=== PATIENT | male | born 1950 | race Caucasian/White ===

== ENCOUNTER 2021-07-14 14:44 | Emergency (ER) | payer MEDICARE, SELFPAY ==
--- NOTE | ~2021-07-14 | US_ITS ---
EXAMINATION: US SCROTUM CLINICAL INFORMATION: Left testicular swelling, pain. COMPARISON: None TECHNIQUE: A sonogram of the scrotum was performed assessing singh-scale appearance and color Doppler flow. Spectral Doppler analysis of the arterial and venous flow were performed in the testes bilaterally. FINDINGS: RIGHT: Right testicle measures 3.8 x 2.9 x 4.0 cm, volume 23.0 mL. No focal testicular parenchymal lesions are visualized. Spectral Doppler analysis of the arterial and venous flow is normal in the right testis. Right epididymal head is not well visualized. No right varicocele is seen. Large right-sided hydrocele. LEFT: Left testicle measures 5 x 2.8 x 3.0 cm, volume 16.6 mL. No focal testicular parenchymal lesions are visualized. Spectral Doppler analysis of the arterial and venous flow is decreased in the left testis. Left epididymal head is now well visualized. No left hydrocele or varicocele is seen. Large left complex hydrocele visualized. US/US scrotum doppler IMPRESSION: 1. Bilateral testicular vascular flow identified. 2. Mildly decreased flow the left testicle nonspecific. Correlation with physical exam and possibility of subacute torsion. 3. Large left-sided complex hydrocele. 4. Large right-sided hydrocele, smaller than the left. This critical result was discussed with COLBY DIETRICH by telephone on 07/14/2021 5:31 PM and it was ascertained that the content and urgency of the report was understood at the time of direct communication.
[2021-07-14 14:45] VITALS: BP 149/87; PULSE 90; RESP 16; TEMP 36.2; O2SAT 94; BMI 30.7
--- NOTE | 2021-07-14 15:33 | ED.MALEGU ---
HPI - Male Genitourinary General Chief complaint: Urogenital-Male <KARLO Barrientos - Last Filed: 07/14/21 18:11> Stated complaint: swollen testicle <KARLO Barrientos Last Filed: 07/14/21 18:11> Time Seen by Provider: 07/14/21 15:21 <KARLO Barrientos Last Filed: 07/14/21 18:11> Source: patient <KARLO Barrientos Last Filed: 07/14/21 18:11> Mode of arrival: ambulatory <KARLO Barrientos Last Filed: 07/14/21 18:11> Limitations: no limitations <KARLO Barrientos Last Filed: 07/14/21 18:11> History of Present Illness HPI Narrative: This is a 71-year-old male that presents to the emergency department with 2 days of left-sided scrotal swelling. He states that his left testicle has been progressively becoming more swollen since yesterday. He denies any pain to the area. He also notes that his testicle a is red, and warm, when compared to usual. He states he tried going to his urologist which he sees for BPH, however they told him to present to the emergency department. He has a past medical history of renal, and colon cancer. He denies any history of STIs. He denies fevers, chills, shortness of breath, chest pain, nausea, vomiting, diarrhea, pain at the testicles, discharge from the penis, changes in bowel habits and painful urination. He is not currently sexually active. <KARLO Barrientos - Last Filed: 07/14/21 18:11> MD Complaint: testicle swelling <KARLO Barrientos Last Filed: 07/14/21 18:11> Onset (ago): day(s) (2) <KARLO Barrientos Last Filed: 07/14/21 18:11> Location: left testicle <KARLO Barrientos Last Filed: 07/14/21 18:11> Severity: moderate <KARLO Barrientos Last Filed: 07/14/21 18:11> Relieving factors: none <KARLO Barrientos Last Filed: 07/14/21 18:11> Exacerbating factors: none <KARLO Barrientos Last Filed: 07/14/21 18:11> Associated symptoms: Reports denies other symptoms <KARLO Barrientos Last Filed: 07/14/21 18:11> Related Data Sexually active: No <KARLO Barrientos Last Filed: 07/14/21 18:11> Allergies/Adverse reactions: Allergies Allergy/AdvReac Type Severity Reaction Status Date / Time Qowbhgz-Fqg-Woz Reductase Allergy Unknown UNKNOWN Unverified 07/14/20 19:03 Inhibitor [VMHDZBD-NIT-ANL REDUCTASE INHIBITOR] <KARLO Barrientos Last Filed: 07/14/21 18:11> Review of Systems Review of Systems: Constitutional : No Weight loss, No Fever, No Chills, No Night Sweats, No Fatigue, No Malaise ENT/Mouth : No Hearing loss, No Ear Pain, No Nasal Congestion, No Sinus Pain Eyes: No Eye Pain, No Swelling, No Redness, No Foreign Body, No Discharge, No Vision Changes Cardiovascular : No Chest Pain, No SOB, No Dyspnea on Exertion, No Orthopnea, No Edema, No Palpitations Respiratory : No Cough, No Sputum, No Wheezing, No Smoke Exposure, No Dyspnea Gastrointestinal : No Nausea, No Vomiting, No Diarrhea, No Constipation, No abdominal Pain, No Hematochezia, No Melena Genitourinary : no irregular bleeding, No Dysuria, No Urinary Frequency, No Hematuria, No Urinary Incontinence, No Urgency, No Flank Pain, No Urinary Flow Changes, No Hesitancy, + erythema, and swelling of the left testicle. Musculoskeletal : No joint pain, No Myalgias, No Joint Swelling Skin : No Skin Lesions, No rash Neuro : No Weakness, No Numbness, No Paresthesias, No Loss of Consciousness, No Dizziness, No Headache Psych : No Anxiety/Panic, No Depression, No SI/HI/AH/VH, No Social Issues, Heme/Lymph: No Bruising, No Bleeding,No Lymphadenopathy Endocrine : No Polyuria, No Polydipsia, No Temperature Intolerance <KARLO Barrientos Last Filed: 07/14/21 18:11> Yes all other systems are reviewed and are negative <KARLO Barrientos Last Filed: 07/14/21 18:11> [facility] Past Medical History Attestation statement: The following information was validated with the patient. <KARLO Barrientos - Last Filed: 07/14/21 18:11> Source: old records reviewed <KARLO Barrientos - Last Filed: 07/14/21 18:11> Medical History: Medical History No known health problems <KARLO Barrientos - Last Filed: 07/14/21 18:11> Social History Social History: Social History Advance Directives: No Advance Directives Information Provided: No <KARLO Barrientos - Last Filed: 07/14/21 18:11> Physical Exam Vital Signs: Vital Signs: Last Vital Signs Temp 97.1 F 07/14/21 14:45 Pulse 90 07/14/21 14:45 Resp 16 07/14/21 14:45 BP 149/87 H 07/14/21 14:45 Pulse Ox 94 07/14/21 14:45 Body Mass Index 30.7 vital signs have been reviewed as normal and appeared to be correct. Blood pressure hypertensive at 149/87 Heart rate normal. Respiration rate normal. Temperature normal. Oxygen saturation normal. <KARLO Barrientos - Last Filed: 07/14/21 18:11> Vital Signs: Last Vital Signs Temp 97.1 F 07/14/21 14:45 Pulse 90 07/14/21 14:45 Resp 16 07/14/21 14:45 BP 149/87 H 07/14/21 14:45 Pulse Ox 94 07/14/21 14:45 Body Mass Index 30.7 <Tawanna Gómez PA-C - Last Filed: 07/14/21 17:32> Appearance: Alert. Oriented X3. No acute distress. Head: Normal external exam. Normocephalic. Atraumatic. Eyes: PERRLA. EOMI. Conjunctiva and sclera normal. Eyelids normal. ENT: Pharynx normal. Uvula midline. Moist mucous membranes. Neck: Normal inspection. Neck supple. FROM. No adenopathy. No meningeal signs. CVS: Normal heart rate and rhythm. Heart sound normal. No murmurs noted. Pulses normal throughout. Respiratory: No respiratory distress. Painless inspiration. Breath sounds normal. No wheezes/rales/rhonchi noted. Chest nontender. No accessory muscle usage noted or decreased air movement noted. Abdomen: Soft and nontender. Bowel sounds normal in all 4 quadrants. No distention noted. No organomegaly noted. No visible injury noted. : + swelling, erythema, and calor noted to the left testicle. , + inguinal lymphadenopathy noted. No lacerations/lesions. No tenderness noted. Normal penis. No Condyloma noted. Not edematous/mass/nodule/papules/pustules/vesicles. Not consistent with paraphimosis or phimosis. No ulcerations or lesions noted. The meatus is normal. No meatal discharge noted. No blood at the meatus. T. Cremasteric reflex absent. Testicles are both descended bilaterally. + bilateral hydrocele noted with positive transilumination test. No inguinal hernia noted. No ulcerations or varicocele. Epididymides normal. No blue dot sign. + left Testicle enlarged. No testicular mass noted. No high-riding testicle noted. No testicular atrophy noted. Back: No CVA tenderness. Full range of motion noted. Skin: Skin warm and dry. Normal skin color. Normal skin turgor. + erythema, and calor noted overlying the left testicle. Extremities: Extremities exhibit normal range of motion. Extremities nontender. Neuro: Oriented X 3. No motor deficit. No sensory deficit. Reflexes normal. <KARLO Barrientos - Last Filed: 07/14/21 18:11> Course Course Course Narrative: 1528 This is a 71 old man that presents to the emergency department with 2 days of left-sided testicular swelling. He denies trauma to the area. He states it is not painful. He denies any past STIs or being sexually active. Past medical history significant for renal cancer as well as colon cancer. He is followed urology for BPH. He denies fevers, chills, shortness of breath, penile discharge, and difficulties with urination. The plan at this time is to obtain a urine, check for gonorrhea, and chlamydia, as well as to obtain a testicular/scrotal ultrasound. then re-evaluate. Ultrasound of the scrotum was reviewed and results are listed below. Upon review of the laboratory studies his potassium was noted to be elevated at 5.4 we will give Kayexalate 30g , and instructions for him to follow-up with his PCP for re-evaluation of potassium levels. <KARLO Barrientos - Last Filed: 07/14/21 18:11> Reevaluation(s) Reevaluation #1: Dr Youngblood from Radiology called, bilateral hydrocele's, Left more complex than right, there is flow butdecreased flow on left as well. <Tawanna Gómez PA-C - Last Filed: 07/14/21 17:32> Time: 17:31 <KARLO Barrientos - Last Filed: 07/14/21 18:11> Reevaluation #2: Dr. Smart examined the patient at 18:00, he states that these are most likely bilateral hydroceles which are causing decreased blood flow to the testicles. He is not concerned for torsion at this time. He states it is okay for the patient to get discharged home, and follow-up with Urology, and his primary care provider. <KARLO Barrientos - Last Filed: 07/14/21 18:11> Time: 18:09 <KARLO Barrientos - Last Filed: 07/14/21 18:11> MDM - Male Genitourinary Medical Records Attestation: I reviewed the patient's medical records. <KARLO Barrientos - Last Filed: 07/14/21 18:11> Lab Data Attestation: I reviewed the patient's lab results. <KARLO Barrientos - Last Filed: 07/14/21 18:11> Result diagrams: : 07/14/21 16:45 07/14/21 16:45 <KARLO Barrientos - Last Filed: 07/14/21 18:11> Labs: Lab Results 07/14/21 07/14/21 07/14/21 Range/Units 16:31 16:45 16:45 WBC 5.3 (4.8-10.8) X10*3/uL RBC 4.63 (4.60-5.80) X10*6/uL Hgb 14.4 (14.0-18.0) g/dl Hct 43.6 (42-52) % MCV 94.2 (80-98) fL MCH 31.1 (27.0-33.0) pg MCHC 33.0 (31.0-36.0) g/dl RDW 13.1 (11.0-16.0) % Plt Count 143 L (160-400) X10*3/uL MPV 10.6 (9.4-12.4) fL Immature Gran % (Auto) 0.2 (0.0-0.4) % Neut % (Auto) 77.9 H (45-73) % Lymph % (Auto) 12.7 L (20-40) % [place] % (Auto) 8.0 (2-11) % Eos % (Auto) 1.0 (0-4) % Baso % (Auto) 0.2 (0-2) % Lymph # (Auto) 0.7 L (1.2-4.9) X10*3/uL [place] # (Auto) 0.4 (0.1-1.2) X10*3/uL Eos # (Auto) 0.1 (0.0-0.4) X10*3/uL Baso # (Auto) 0.0 (0.0-0.2) X10*3/uL Abs Immat Gran (auto) 0.01 (0.00-0.03) X10*3/uL Absolute Neuts (auto) 4.1 (2.0-8.3) X10*3/uL Absolute Nucleated RBC 0.000 (0.0-0.012) X10*3/uL Nucleated RBC % (auto) 0.0 (0.0-0.2) /100WBC PT Cancelled INR Cancelled Sodium (135-145) mmol/L Potassium (3.3-5.1) mmol/L Chloride (96-108) mmol/L Carbon Dioxide (22-29) mmol/L Anion Gap (12-20) BUN (9-16) mg/dL Creatinine (0.5-1.4) mg/dL Estim Creat Clear Calc Estimated GFR Random Glucose (60-115) mg/dL Calcium (8.4-10.2) mg/dL Magnesium (1.6-2.6) mg/dL Total Bilirubin (0.0-1.0) mg/dL AST (5-37) U/L ALT (0-40) U/L Alkaline Phosphatase (39-117) U/L Total Protein (6.5-8.0) g/dL Albumin (3.5-5.0) g/dL Urine Color YELLOW Urine Appearance CLEAR Urine pH 5.5 (5.0-8.0) Ur Specific [place] 1.025 (1.005-1.025) Urine Protein NEG (NEG-TRACE) MG/DL Urine Glucose (UA) NEG (NEG) MG/DL Urine Ketones NEG (NEG) MG/DL Urine Blood NEG (NEG) Urine Nitrite NEG (NEG) Ur Leukocyte Esterase NEG (NEG) 07/14/21 Range/Units 16:45 WBC (4.8-10.8) X10*3/uL RBC (4.60-5.80) X10*6/uL Hgb (14.0-18.0) g/dl Hct (42-52) % MCV (80-98) fL MCH (27.0-33.0) pg MCHC (31.0-36.0) g/dl RDW (11.0-16.0) % Plt Count (160-400) X10*3/uL MPV (9.4-12.4) fL Immature Gran % (Auto) (0.0-0.4) % Neut % (Auto) (45-73) % Lymph % (Auto) (20-40) % [place] % (Auto) (2-11) % Eos % (Auto) (0-4) % Baso % (Auto) (0-2) % Lymph # (Auto) (1.2-4.9) X10*3/uL [place] # (Auto) (0.1-1.2) X10*3/uL Eos # (Auto) (0.0-0.4) X10*3/uL Baso # (Auto) (0.0-0.2) X10*3/uL Abs Immat Gran (auto) (0.00-0.03) X10*3/uL Absolute Neuts (auto) (2.0-8.3) X10*3/uL Absolute Nucleated RBC (0.0-0.012) X10*3/uL Nucleated RBC % (auto) (0.0-0.2) /100WBC PT INR Sodium 138 (135-145) mmol/L Potassium 5.4 H (3.3-5.1) mmol/L Chloride 108 (96-108) mmol/L Carbon Dioxide 23 (22-29) mmol/L Anion Gap 12 (12-20) BUN 29 H (9-16) mg/dL Creatinine 1.28 (0.5-1.4) mg/dL Estim Creat Clear Calc 61.8 Estimated GFR 55 Random Glucose 152 H (60-115) mg/dL Calcium 9.5 (8.4-10.2) mg/dL Magnesium 2.2 (1.6-2.6) mg/dL Total Bilirubin 0.4 (0.0-1.0) mg/dL AST 16 (5-37) U/L ALT 32 (0-40) U/L Alkaline Phosphatase 64 (39-117) U/L Total Protein 6.2 L (6.5-8.0) g/dL Albumin 3.9 (3.5-5.0) g/dL Urine Color Urine Appearance Urine pH (5.0-8.0) Ur Specific [place] (1.005-1.025) Urine Protein (NEG-TRACE) MG/DL Urine Glucose (UA) (NEG) MG/DL Urine Ketones (NEG) MG/DL Urine Blood (NEG) Urine Nitrite (NEG) Ur Leukocyte Esterase (NEG) <KARLO Barrientos - Last Filed: 07/14/21 18:11> Lab Results 07/14/21 07/14/21 07/14/21 Range/Units 16:31 16:45 16:45 WBC 5.3 (4.8-10.8) X10*3/uL RBC 4.63 (4.60-5.80) X10*6/uL Hgb 14.4 (14.0-18.0) g/dl Hct 43.6 (42-52) % MCV 94.2 (80-98) fL MCH 31.1 (27.0-33.0) pg MCHC 33.0 (31.0-36.0) g/dl RDW 13.1 (11.0-16.0) % Plt Count 143 L (160-400) X10*3/uL MPV 10.6 (9.4-12.4) fL Immature Gran % (Auto) 0.2 (0.0-0.4) % Neut % (Auto) 77.9 H (45-73) % Lymph % (Auto) 12.7 L (20-40) % [place] % (Auto) 8.0 (2-11) % Eos % (Auto) 1.0 (0-4) % Baso % (Auto) 0.2 (0-2) % Lymph # (Auto) 0.7 L (1.2-4.9) X10*3/uL [place] # (Auto) 0.4 (0.1-1.2) X10*3/uL Eos # (Auto) 0.1 (0.0-0.4) X10*3/uL Baso # (Auto) 0.0 (0.0-0.2) X10*3/uL Abs Immat Gran (auto) 0.01 (0.00-0.03) X10*3/uL Absolute Neuts (auto) 4.1 (2.0-8.3) X10*3/uL Absolute Nucleated RBC 0.000 (0.0-0.012) X10*3/uL Nucleated RBC % (auto) 0.0 (0.0-0.2) /100WBC PT Cancelled INR Cancelled Sodium (135-145) mmol/L Potassium (3.3-5.1) mmol/L Chloride (96-108) mmol/L Carbon Dioxide (22-29) mmol/L Anion Gap (12-20) BUN (9-16) mg/dL Creatinine (0.5-1.4) mg/dL Estim Creat Clear Calc Estimated GFR Random Glucose (60-115) mg/dL Calcium (8.4-10.2) mg/dL Magnesium (1.6-2.6) mg/dL Total Bilirubin (0.0-1.0) mg/dL AST (5-37) U/L ALT (0-40) U/L Alkaline Phosphatase (39-117) U/L Total Protein (6.5-8.0) g/dL Albumin (3.5-5.0) g/dL Urine Color YELLOW Urine Appearance CLEAR Urine pH 5.5 (5.0-8.0) Ur Specific [place] 1.025 (1.005-1.025) Urine Protein NEG (NEG-TRACE) MG/DL Urine Glucose (UA) NEG (NEG) MG/DL Urine Ketones NEG (NEG) MG/DL Urine Blood NEG (NEG) Urine Nitrite NEG (NEG) Ur Leukocyte Esterase NEG (NEG) 07/14/21 Range/Units 16:45 WBC (4.8-10.8) X10*3/uL RBC (4.60-5.80) X10*6/uL Hgb (14.0-18.0) g/dl Hct (42-52) % MCV (80-98) fL MCH (27.0-33.0) pg MCHC (31.0-36.0) g/dl RDW (11.0-16.0) % Plt Count (160-400) X10*3/uL MPV (9.4-12.4) fL Immature Gran % (Auto) (0.0-0.4) % Neut % (Auto) (45-73) % Lymph % (Auto) (20-40) % [place] % (Auto) (2-11) % Eos % (Auto) (0-4) % Baso % (Auto) (0-2) % Lymph # (Auto) (1.2-4.9) X10*3/uL [place] # (Auto) (0.1-1.2) X10*3/uL Eos # (Auto) (0.0-0.4) X10*3/uL Baso # (Auto) (0.0-0.2) X10*3/uL Abs Immat Gran (auto) (0.00-0.03) X10*3/uL Absolute Neuts (auto) (2.0-8.3) X10*3/uL Absolute Nucleated RBC (0.0-0.012) X10*3/uL Nucleated RBC % (auto) (0.0-0.2) /100WBC PT INR Sodium 138 (135-145) mmol/L Potassium 5.4 H (3.3-5.1) mmol/L Chloride 108 (96-108) mmol/L Carbon Dioxide 23 (22-29) mmol/L Anion Gap 12 (12-20) BUN 29 H (9-16) mg/dL Creatinine 1.28 (0.5-1.4) mg/dL Estim Creat Clear Calc 61.8 Estimated GFR 55 Random Glucose 152 H (60-115) mg/dL Calcium 9.5 (8.4-10.2) mg/dL Magnesium 2.2 (1.6-2.6) mg/dL Total Bilirubin 0.4 (0.0-1.0) mg/dL AST 16 (5-37) U/L ALT 32 (0-40) U/L Alkaline Phosphatase 64 (39-117) U/L Total Protein 6.2 L (6.5-8.0) g/dL Albumin 3.9 (3.5-5.0) g/dL Urine Color Urine Appearance Urine pH (5.0-8.0) Ur Specific [place] (1.005-1.025) Urine Protein (NEG-TRACE) MG/DL Urine Glucose (UA) (NEG) MG/DL Urine Ketones (NEG) MG/DL Urine Blood (NEG) Urine Nitrite (NEG) Ur Leukocyte Esterase (NEG) <Tawanna Gómez PA-C - Last Filed: 07/14/21 17:32> Imaging Data Ultrasound of the scrotum: Attestation: I personally reviewed and interpreted this imaging study as follows: <KARLO Barrientos - Last Filed: 07/14/21 18:11> Radiologist's impression: FINDINGS: RIGHT: Right testicle measures 3.8 x 2.9 x 4.0 cm, volume 23.0 mL. No focal testicular parenchymal lesions are visualized. Spectral Doppler analysis of the arterial and venous flow is normal in the right testis. Right epididymal head is not well visualized. No right varicocele is seen. Large right-sided hydrocele. LEFT: Left testicle measures 5 x 2.8 x 3.0 cm, volume 16.6 mL. No focal testicular parenchymal lesions are visualized. Spectral Doppler analysis of the arterial and venous flow is decreased in the left testis. Left epididymal head is now well visualized. No left hydrocele or varicocele is seen. Large left complex hydrocele visualized. US/US scrotum doppler IMPRESSION: 1.? Bilateral testicular vascular flow identified. 2.? Mildly decreased flow the left testicle nonspecific. Correlation with physical exam and possibility of subacute torsion. 3.? Large left-sided complex hydrocele. 4.? Large right-sided hydrocele, smaller than the left. ? This critical result was discussed with COLBY DIETRICH by telephone on 07/14/2021 5:31 PM and it was ascertained that the content and urgency of the report was understood at the time of direct communication. <KARLO Barrientos - Last Filed: 07/14/21 18:11> Discharge Plan Discharge Clinical Impression: Bilateral hydrocele, Inflamed scrotum <KARLO Barrientos - Last Filed: 07/14/21 18:11> Patient Disposition: Home, Self-Care <KARLO Barrientos - Last Filed: 07/14/21 18:11> Instructions: Hydrocele (ED) <KARLO Barrientos - Last Filed: 07/14/21 18:11> Additional Instructions: Follow-up with your urologist, and your PCP. It is important for you to follow-up with her PCP, so they can recheck your potassium level. Return to the emergency department with new or worsening symptoms such as fevers, chills, chest pain, difficulties with urination. <KARLO Barrientos - Last Filed: 07/14/21 18:11> Referrals: Jarett Clements MD [Physician] - 1 day (Call to schedule an appointment with your urologist, preferably by Saturday.) <KARLO Barrientos - Last Filed: 07/14/21 18:11>
[2021-07-14 16:54] LABS: MANUAL DIFF FLAG NO
[2021-07-14 16:57] LABS: Basophils Percent Auto 0.2 % (0-2); Eosinophils Absolute Auto 0.1 X10*3/uL (0.0-0.4); Hematocrit 43.6 % (42-52); Hemoglobin 14.4 g/dl (14.0-18.0); Imm Gran Abs Auto 0.01 X10*3/uL (0.00-0.03); Imm Gran Pct Auto 0.2 % (0.0-0.4); Lymphocytes Absolute Auto 0.7 X10*3/uL (1.2-4.9); Lymphocytes Percent Auto 12.7 % (20-40); Mean Corpuscular Hemoglobin 31.1 pg (27.0-33.0); Mean Corpuscular Volume 94.2 fL (80-98); Mean Platelet Volume 10.6 fL (9.4-12.4); Monocytes Absolute Auto 0.4 X10*3/uL (0.1-1.2); Neutrophils Absolute Auto 4.1 X10*3/uL (2.0-8.3); Neutrophils Percent Auto 77.9 % (45-73); Platelet Count 143 X10*3/uL (160-400); Red Blood Count 4.63 X10*6/uL (4.60-5.80); Red Cell Distribution Width 13.1 % (11.0-16.0); White Blood Count 5.3 X10*3/uL (4.8-10.8)
[2021-07-14 17:00] LABS: Appearance Urine CLEAR; Color Urine YELLOW; Glucose Urine UA NEG (NEG); Leukocyte Esterase Urine NEG (NEG); Nitrite Urine NEG (NEG); PH 5.5 (5.0-8.0); Specific Gravity - Urine 1.025 (1.005-1.025); Urine Blood NEG (NEG); Urine Ketones NEG (NEG); Urine Protein NEG (NEG-TRACE)
[2021-07-14 17:20] LABS: Alanine Aminotransferase 32 U/L (0-40); Albumin Level 3.9 g/dL (3.5-5.0); Alkaline Phosphatase 64 U/L (39-117); Anion Gap 12 (12-20); Aspartate Amino Transferase 16 U/L (5-37); Bilirubin Total 0.4 mg/dL (0.0-1.0); Blood Urea Nitrogen 29 mg/dL (9-16); Calcium 9.5 mg/dL (8.4-10.2); Carbon Dioxide 23 mmol/L (22-29); Chloride 108 mmol/L (96-108); Creatinine Clr Calc Pharmacy 61.8; Estimated Glomerular Filt Rate 55; Glucose Random 152 mg/dL (60-115); Magnesium 2.2 mg/dL (1.6-2.6); Potassium 5.4 mmol/L (3.3-5.1); Sodium 138 mmol/L (135-145); Total Protein 6.2 g/dL (6.5-8.0)
--- NOTE | 2021-07-14 17:24 | ECG_ITS ---
Test Reason : HYPERKALEMIA Blood Pressure : / mmHG Vent. Rate : 062 BPM Atrial Rate : 062 BPM P-R Int : 248 ms QRS Dur : 090 ms QT Int : 368 ms P-R-T Axes : 020 -32 020 degrees QTc Int : 373 ms Sinus rhythm with 1st degree A-V block Left axis deviation Inferior infarct (cited on or before 04-MAY-2020) Anteroseptal infarct (cited on or before 04-MAY-2020) Abnormal ECG When compared with ECG of 04-MAY-2020 17:44, Premature atrial complexes are no longer Present Questionable change in initial forces of Lateral leads Referred By: Deana Kelley Electronically Signed By:CALDERON KULKARNI
[2021-07-14] MEDS: Sodium Polystyrene Sulfon/Sorb 15 GM/60 ML ORAL.SUSP 30 GM PO (18:25)
--- NOTE | 2021-07-14 18:26 | PC.NURSE ---
UROLOGY CAME INTO BEDSIDE WITH KARLO LEVINE TO SPEAK TO PT HE WILL BE D/C AND F/U WITH HIM IN OFFICE.
[2021-07-15 01:45] LABS: CT PCR NOT DETECTED (Not Detect.); NG PCR NOT DETECTED (Not Detect.)
== END 2021-07-14 18:31 | disposition home or self-care (01) ==
PROVIDERS: Physician Assistant Medical; Emergency Provider Emergency Medicine
DX: N43.3 Hydrocele, unspecified (principal); N50.89 Other specified disorders of the male genital organs; N50.82 Scrotal pain; N40.0 Benign prostatic hyperplasia without lower urinary tract symptoms; Z79.899 Other long term (current) drug therapy
CPT/HCPCS: 36415; 80053; 81003; 83735; 85025; 85610; 87491; 87591; 93005; 93975; 99284

== ENCOUNTER 2022-05-15 15:53 | Outpatient (REF) | payer MEDICARE, SELFPAY ==
--- NOTE | ~2022-05-15 | XR_ITS ---
EXAMINATION: XR LUMBOSACRAL SPINE WITH OBLIQUES CLINICAL INFORMATION: Lumbar disc disease COMPARISON: None TECHNIQUE: AP, both oblique, and lateral views of the lumbar spine. Lateral view of the lumbosacral junction. FINDINGS: There is normal lumbar lordosis. The vertebral heights and alignment is normal. There are large bridging enthesophytes along the ventral lumbar spine from L3 through S1 vertebra. No acute fracture or lytic process seen. There is no pars defect or listhesis on oblique views however limited. The paravertebral soft tissues are normal. SI joints are symmetrical and normal. XR/XR lumbar spine 4V min IMPRESSION: No acute fracture or dislocation. Large bridging ventral osteophytes from L3 through S1 vertebra.
== END 2022-05-15 15:54 | disposition home or self-care (01) ==
LOC: HO.XRAY 15:53
PROVIDERS: Visit Provider Psychiatry & Neurology Neurology
DX: M51.9 Unspecified thoracic, thoracolumbar and lumbosacral intervertebral disc disorder (principal)
CPT/HCPCS: 72110

== ENCOUNTER 2023-10-18 08:49 | Outpatient (AMB) | payer MEDICARE, SELFPAY ==
--- OUTSIDE RECORDS SUMMARY | 2023-10-18 08:51 | XMS_ITS | Continuity of Care Document ---
Author Name Unknown Organization [facility] Address [address] [place], [place] [address] [place], [address] [place] [address]- Care Team Providers Care Prosthetist Name Role Phone Billy FRENCH, Sylvester Thompson Primary Care Physician Encounter [facility] Date(s): 05/19/20 - 06/18/20 [facility] [address] [place] [address] Drive, [address] [place] [address]- [facility] Attending Physician: Yoana Ortiz Admitting Physician: AdmtrYoana Referring Physician: Admtr, Ar8 Allergies, Adverse Reactions, Alerts Substance Reaction Severity Status atorvastatin 1 Muscle weakness of lower extremity Pers istent Mild Active 1pravastatin ok to take Immunizations Given and Recorded Vaccine Date Status Refusal Reason pneumococcal 13-valent vaccine 1 05/09/20 Given 1Early/Late Reason: Other : UNKNOWN Medications amLODIPine 5 mg oral tablet 5 mg, 1, tablet, By Mouth, Daily, Refills 0, Maintenance, 05/14/17 16:40:14 Start Date: 05/14/17 Status: Ordered aspirin 81 mg oral delayed release tablet 81 mg, By Mouth, Daily, # 30 tablet, Refills 0, Tot. Refills 0, Maintenance, 02/27/17 16:38:36, Route to Pharmacy Electronically, [id number], [facility] Start Date: 02/27/17 Status: Ordered Compression- Lower Extremity (Knee High) See Instructions, # 2 pair, Refills 2, Tot. Refills 2, Maintenance, 20-25mm Hg bilateral. Dx: Vasovagal syncope, 05/14/17 17:09:34, Compound Start Date: 05/14/17 Status: Ordered doxazosin 4 mg oral tablet 1 tablet = 4 mg, By Mouth, Daily, 0 Refills, Maintenance, 05/14/17 16:40:26 Start Date: 05/14/17 Status: Ordered lisinopril 10 mg oral tablet 10 mg, 1, tablet, By Mouth, Daily, # 30 tablet, Refills 0, Maintenance, 05/05/20 1:57:00 EDT Start Date: 05/05/20 Status: Ordered metoprolol 25 mg oral tablet, extended release 25 mg, 1, tablet, By Mouth, Daily, # 30 tablet, Refills 0, Tot. Refills 0, Maintenance, 03/10/17 14:17:47, Route to Pharmacy Electronically, [id number], [facility] Start Date: 03/10/17 Status: Ordered metoprolol 50 mg oral tablet 50 mg, 1, tablet, By Mouth, Daily, Refills 0, Maintenance, 05/14/17 16:39:02 Start Date: 05/14/17 Status: Ordered Metoprolol Succinate ER 50 mg oral tablet, extended release 0 Refills, Maintenance, 05/05/20 1:57:00 EDT Start Date: 05/05/20 Status: Ordered MiraLax Powder = 17 Gm, By Mouth, Daily, 0 Refills, Maintenance, 05/14/17 16:41:20 Start Date: 05/14/17 Status: Ordered PredniSONE = 25 mg, By Mouth, Daily, 0 Refills, Maintenance, 05/14/17 16:39:45 Start Date: 05/14/17 Status: Ordered predniSONE 5 mg oral tablet 0 Refills, Maintenance, 05/05/20 1:57:00 EDT Start Date: 05/05/20 Status: Ordered Red Yeast Rice = 1,200 mg, By Mouth, Daily, 0 Refills, Maintenance, 05/14/17 16:41:14 Start Date: 05/14/17 Status: Ordered tamsulosin 0.4 mg oral capsule 0.4 mg, 1, capsule, By Mouth, Daily, # 30 capsule, Refills 0, Maintenance, 05/05/20 1:57:00 EDT Start Date: 05/05/20 Status: Ordered Thymus Stimulator supplement Thymus Stimulator supplement, Refills 0, Maintenance, 05/14/17 16:40:37, Compound Start Date: 05/14/17 Status: Ordered Tylenol 325 mg oral tablet 650 mg, 2, tablet, By Mouth, Every 4 hours, PRN, Refills 0, Maintenance, Pain , Mild, 05/09/20 11:03:00 EDT Start Date: 05/09/20 Status: Ordered Social History Social History Type Response Smoking Status Never smoker; Tobacc o user in household: No entered on: 05/14/17 Sex
--- OUTSIDE RECORDS SUMMARY | 2023-10-18 08:51 | XMS_ITS | Continuity of Care Document ---
Author Name Unknown Organization [facility] Address [address] [place] [address] [address] [place] [address]- Care Team Providers Care Altitude Chamber Technician Name Role Phone Billy FRENCH, Sylvester Thompson Primary Care Physician En[place] [facility] [place] Date(s): 05/10/20 - 06/09/[address] [place] [address]- [facility] Attending Physician: Yoana Ortiz Admitting Physician: [...] Maintenance, 02/27/17 16:38:36, Route to Pharmacy Electronically, [id number], [facility] Start Date: 02/27/17 Status: Ordered [...] Maintenance, 03/10/17 14:17:47, Route to Pharmacy Electronically, [id number], [facility] 3 Start Date: 03/10/17 Status: Ordered metoprolol [...]
--- OUTSIDE RECORDS SUMMARY | 2023-10-18 08:51 | XMS_ITS | Continuity of Care Document ---
Author Name Unknown Organization [facility] ter Address [address] [place] [address]- Care Team Providers Care Power Tool Repairer Name Role Phone Billy FRENCH, Sylvester Thompson Primary Care Physician [phone] Encounter [facility] [place] Date(s): 11/10/19 - 11/17/[address] [address]- [facility] Attending Physician: Johann Martinez MD Allergies, Adverse Reactions, Alerts Substance Reaction Severity Status atorvastatin 1 Muscle weakness of lower extremity Active 1pravastatin ok to take Medications amLODIPine 5 mg oral tablet 5 mg, 1, tablet, By Mouth, Daily, Refills 0, Maintenance, 05/14/17 16:40:14 Start Date: 05/14/17 Status: Ordered aspirin 81 mg oral delayed release tablet 81 mg, By Mouth, Daily, # 30 tablet, Refills 0, Tot. Refills 0, Maintenance, 02/27/17 16:38:36, Route to Pharmacy Electronically, [id number], [facility] Start Date: 02/27/17 Status: Ordered Compression- Lower Extremity (Knee High) See Instructions, # 2 pair, Refills 2, Tot. Refills 2, Maintenance, 20-25mm Hg bilateral. Dx: Vasovagal syncope, 05/14/17 17:09:34, Compound Start Date: 05/14/17 Status: Ordered doxazosin 4 mg oral tablet 1 tablet = 4 mg, By Mouth, Daily, 0 Refills, Maintenance, 05/14/17 16:40:26 Start Date: 05/14/17 Status: Ordered metoprolol 25 mg oral tablet, extended release 25 mg, 1, tablet, By Mouth, Daily, # 30 tablet, Refills 0, Tot. Refills 0, Maintenance, 03/10/17 14:17:47, Route to Pharmacy Electronically, [id number], [facility] 3 Start Date: 03/10/17 Status: Ordered metoprolol 50 mg oral tablet 50 mg, 1, tablet, By Mouth, Daily, Refills 0, Maintenance, 05/14/17 16:39:02 Start Date: 05/14/17 Status: Ordered MiraLax Powder = 17 Gm, By Mouth, Daily, 0 Refills, Maintenance, 05/14/17 16:41:20 Start Date: 05/14/17 Status: Ordered PredniSONE = 25 mg, By Mouth, Daily, 0 Refills, Maintenance, 05/14/17 16:39:45 Start Date: 05/14/17 Status: Ordered Red Yeast Rice = 1,200 mg, By Mouth, Daily, 0 Refills, Maintenance, 05/14/17 16:41:14 Start Date: 05/14/17 Status: Ordered Thymus Stimulator supplement Thymus Stimulator supplement, Refills 0, Maintenance, 05/14/17 16:40:37, Compound Start Date: 05/14/17 Status: Ordered Social History Social History Type Response Smoking Status Never smoker; Tobacc o user in household: No entered on: 05/14/17 Sex
--- OUTSIDE RECORDS SUMMARY | 2023-10-18 08:51 | XMS_ITS | Continuity of Care Document ---
Author Name Unknown Organization [facility] ter Address [address] [place] [address]- Care Team Providers Care Diamond Wheel Edger Name Role Phone Sylvester Cervantes MD Primary Care Physician Encounter [facility] [place] Date(s): 01/19/22 - 03/04/[address] [address] Attending Physician: Sylvester Cervantes MD Admitting Physician: Sylvester Cervantes MD Referring Physician: Sylvester Cervantes MD Allergies, Adverse Reactions, Alerts Substance Reaction [...] Maintenance, 02/27/17 16:38:36, Route to Pharmacy Electronically, [id number], [facility] 3 Start Date: 02/27/17 Status: [...] Maintenance, 03/10/17 14:17:47, Route to Pharmacy Electronically, [id number], [facility] 3 Start Date: 03/10/17 Status: [...]
--- OUTSIDE RECORDS SUMMARY | 2023-10-18 08:51 | XMS_ITS | Continuity of Care Document ---
Author Name Unknown Organization [facility] Address [address] [place], [place] [address], [address] [place] [address]- Care Team Providers Care General Administrator Name Role Phone Billy FRENCH, Sylvester Thompson Primary Care Physician En[place] [facility] [place] Date(s): 08/04/20 - 09/03/20 [facility] [address] [place] [address] Drive, [address] [place], [place] [address] Attending Physician: Yoana Ortiz Admitting Physician: Admtr, Yoana Referring Physician: Admtr, Ar8 Allergies, Adverse Reactions, [...] Maintenance, 02/27/17 16:38:36, Route to Pharmacy Electronically, [id number], [facility] 3 Start Date: 02/27/17 Status: [...] Maintenance, 03/10/17 14:17:47, Route to Pharmacy Electronically, [id number], [facility] 3 Start Date: 03/10/17 Status: Ordered metoprolol [...]
--- OUTSIDE RECORDS SUMMARY | 2023-10-18 08:51 | XMS_ITS | Continuity of Care Document ---
Author Name Unknown Organization [facility] Address [address] [place] [address]- Care Team Providers Care Hvac Lead Name Role Phone Billy FRENCH, Sylvester Thompson Primary Care Physician [phone] [place] [facility] [place] 07/14/21 - 08/13/21 [facility] [address] [place], [place] [address] Attending Physician: Yoana Ortiz Admitting Physician: AdmYoana kang Referring Physician: Admtr, ArDann Allergies, Adverse Reactions, Alerts Substance Reaction Severity [...] Maintenance, 02/27/17 16:38:36, Route to Pharmacy Electronically, [id number], [facility] 3 Start Date: 02/27/17 Status: [...] Maintenance, 03/10/17 14:17:47, Route to Pharmacy Electronically, [id number], [facility] 3 Start Date: 03/10/17 Status: Ordered [...]
--- OUTSIDE RECORDS SUMMARY | 2023-10-18 08:51 | XMS_ITS | Continuity of Care Document ---
Author Name Unknown Organization [facility] Address [address] [place] [address]- Care Team Providers Care Professor Of Physics Name Role Phone Sylvester Cervantes MD Primary Care Physician [phone] [place] [facility] [place](s): 07/14/21 - 07/21/21 [facility] [address] [place], [place] [address] Encounter Diagnosis Hydrocele(Discharge Diagnosis) - 07/14/21 Scrotal swelling(Discharge Diagnosis) - 07/14/21 Attending Physician: Juan Manuel Juan DO Referring Physician: Sylvester Cervantes MD Allergies, Adverse [...] Maintenance, 02/27/17 16:38:36, Route to Pharmacy Electronically, [id number], [facility] 3 Start Date: 02/27/17 Status: [...] Maintenance, 03/10/17 14:17:47, Route to Pharmacy Electronically, [id number], [facility] 3 Start Date: 03/10/17 Status: Ordered [...] 11:03:00 EDT Start Date: 05/09/20 Status: Ordered Problem List Diagnosis Diagnosis Type Effective Dates Health Status inical Service Informant Hydrocele Discharge Diagnosis 07/14/21 Scrotal swelling Discharge Diagnosis 07/14/21 Vital Signs Most recent to oldest [Reference Range]: 1 Height 179 cm (07/14/21 12:34 PM) Oxygen Saturation [94-100 %] 100 % (07/14/21 12:34 PM) Pulse Rate [55-90 bpm] 60 bpm (07/14/21 12:34 PM) Blood Pressure [90-138/55-84 mm Hg] 150/ 94mm Hg *H* (07/14/21 12:34 PM) Respiratory Rate [16-30 br/min] 16 br/mi n (07/14/21 12:34 PM) Temperature [96.8-100.4 DegF] 98.0 DegF (07/14/21 12:34 PM) Mode of Delivery (Oxygen) Room air (07/14/21 12:34 PM) Blood pressure sites Arm, left (07/14/21 12:34 PM) Temperature Route Temporal (07/14/21 12:34 PM) Social History Social History Type Response Smoking Status Never smoker; Tobacc o user in household: No entered on: 05/14/17 Sex
--- OUTSIDE RECORDS SUMMARY | 2023-10-18 08:51 | XMS_ITS | Continuity of Care Document ---
Author Name Unknown Organization [facility] Address [address] [place] [address] [address], [address] [place] [address]- Care Team Providers Care Special Client Bus Driver Name Role Phone Billy FRENCH, Sylvester Thompson Primary Care Physician [place] [facility] [id number] Date(s): 08/04/20 - 08/11/20 [facility] [address] [place] [address] Drive, [address] [place] [address]- [facility] Attending Physician: Not on Staff, Attending MD Referring Physician: Franci Park Allergies, Adverse Reactions, Alerts Substance Reaction Severity [...] Maintenance, 02/27/17 16:38:36, Route to Pharmacy Electronically, [id number], [facility] 3 Start Date: 02/27/17 Status: Ordered Compression- [...] Maintenance, 03/10/17 14:17:47, Route to Pharmacy Electronically, [id number], [facility] 3 Start Date: 03/10/17 Status: Ordered metoprolol [...] 11:03:00 EDT Start Date: 05/09/20 Status: Ordered Vital Signs Most recent to oldest [Reference Range]: 1 Height 179 cm (08/03/20 9:45 AM) Weight 95.3 kg (08/03/20 9:45 AM) Body Mass Index [18.5-24.99] 29.74 *H* (08/03/20 9:45 AM) Social History Social History Type Response Smoking Status Never smoker; Tobacc o user in household: No entered on: 05/14/17 Sex
--- OUTSIDE RECORDS SUMMARY | 2023-10-18 08:51 | XMS_ITS | Continuity of Care Document ---
Author Name Unknown Organization [facility] ter Address [address] [place] [address]- Care Team Providers Care Purchasing Intern Name Role Phone Billy FRENCH, Sylvester Thompson Primary Care Physician [phone] Encounter [facility] [place] Date(s): 05/05/20 - 05/09/[address] [address]- [facility] Discharge Disposition: Disch/Trans to IP Rehab or unit w/in Hos Attending Physician: Pooja Morton MD Admitting Physician: Pooja Morton MD Referring Physician: Not on Staff, Referring MD Allergies, Adverse Reactions, Alerts Substance Reaction Severity Status atorvastatin Persistent Mild Active Immunizations Given and Recorded Vaccine Date Status Refusal Reason pneumococcal 13-valent vaccine 1 05/09/20 Given 1Early/Late Reason: Other : UNKNOWN Medications lisinopril 10 mg oral tablet 10 mg, 1, tablet, By Mouth, Daily, # 30 tablet, Refills 0, Maintenance, 05/05/20 1:57:00 EDT Start Date: 05/05/20 Status: Ordered Metoprolol Succinate ER 50 mg oral tablet, extended release 0 Refills, Maintenance, 05/05/20 1:57:00 EDT Start Date: 05/05/20 Status: Ordered oxyCODONE 5 mg oral tablet 5 mg, 1, tablet, By Mouth, Every 4 hours, PRN, for 3 days, # 10 tablet, Refills 0, Tot. Refills 0, Acute 05/12/20 11:02:00 EDT, Pain , Severe, 05/09/20 11:02:00 EDT, Print Requisition, Partial fill upon patient request Start Date: 05/09/20 Stop Date: 05/12/20 Status: Ordered predniSONE 5 mg oral tablet 0 Refills, Maintenance, 05/05/20 1:57:00 EDT Start Date: 05/05/20 Status: Ordered tamsulosin 0.4 mg oral capsule 0.4 mg, 1, capsule, By Mouth, Daily, # 30 capsule, Refills 0, Maintenance, 05/05/20 1:57:00 EDT Start Date: 05/05/20 Status: Ordered Tylenol 325 mg oral tablet 650 mg, 2, tablet, By Mouth, Every 4 hours, PRN, Refills 0, Maintenance, Pain , Mild, 05/09/20 11:03:00 EDT Start Date: 05/09/20 Status: Ordered Results Radiology Reports * Exam Date Time Procedure Performing Provider Status 05/05/20 3:21 PM Thoracic Spine 2 Views Jessica Brady [facility] (Verified) Notes: (Thoracic Spine 2 Views) Reason For Exam: T9-T10 fracture;Trauma RESULT: Thoracic Spine 2 Views Thoracolumbar spine 2 views dated May 05, 2020. Correlation is made with a CT dated May 04, 2020. HISTORY: Follow-up abnormality. FINDINGS: On the previous examination, there is evidence of some widening of the intervertebral disc space anteriorly at T10-11 consistent with anterior ligament rupture. This is still present on today's examination although the anterior widening is less impressive. No new fracture is seen. IMPRESSION: Stable T10-11 anteriorly and rupture. Thank you for allowing me to participate in the care of this patient. WSN: [id number] Ordering Physician: Franci Mullen Dictated By: Austin Lira MD Dictated Date/Time: 05/05/20 3:51 pm Reviewed By: Austin Lira MD Signed By: Austin Lira MD Signed Date/Time: 05/05/20 3:51 pm Transcribed By: MANAS Transcribed Date/Time: 05/05/20 3:45 pm * Exam Date Time Procedure Performing Provider Status 05/04/20 9:34 PM Chest Portable Francis Torres ( Verified) Notes: (Chest Portable) Reason For Exam: Pain;Other: RESULT: Chest Portable Chest Portable Reason: Other:; Pain; Clinical Question(s): Other:; Fracture, pneumothorax, pulmonary contusion COMPARISON: None. FINDINGS: LINES AND TUBES: None. LUNGS AND PLEURA: Low lung volumes with mild basilar atelectasis. Lungs are otherwise clear with no consolidation. No pleural effusion. No pneumothorax. HEART, MEDIASTINUM AND TRUNG: Heart is normal in size. Normal mediastinal and hilar contour. BONES AND SOFT TISSUES: Chronic-appearing right posterior fifth and sixth rib fractures. No acute abnormality. IMPRESSION: No acute abnormality. WSN: [id number] Ordering Physician: Mariela Ribeiro Dictated By: Clemente Griffin MD Dictated Date/Time: 05/04/20 9:43 pm Reviewed By: Clemente Griffin MD Signed By: Clemente Griffin MD Signed Date/Time: 05/04/20 9:43 pm Transcribed By: MANAS Transcribed Date/Time: 05/04/20 9:40 pm Vital Signs Most recent to oldest [Reference Range]: 1 2 3 Height 179 cm (05/09/20 10:56 AM) 179 cm (05/08/20 11:04 PM) 179 cm (05/08/20 7:25 PM) Weight 102 kg (05/05/20 7:00 PM) Oxygen Saturation [94-100 %] 96 % (05/09/20 3:16 PM) 94 % (05/09/20 10:56 AM) 98 % (05/09/20 7:00 AM) Pulse Rate [55-90 bpm] 72 bpm (05/09/20 3:16 PM) 67 bpm (05/09/20 10:56 AM) 96 bpm *H* (05/09/20 7:42 AM) Body Mass Index [18.5-24.99] 31.83 *>HHI* (05/05/20 7:00 PM) Blood Pressure [90-138/55-84 mm Hg] 123/74mm Hg (05/09/20 3:16 PM) 131/75mm Hg (05/09/20 10:56 AM) 139/84mm Hg *H* (05/09/20 7:42 AM) Respiratory Rate [16-30 br/min] 20 br/min (05/09/20 4:56 PM) 20 br/min (05/09/20 4:56 PM) 20 br/min (05/09/20 3:56 PM) Temperature [96.8-100.4 DegF] 98.4 DegF (05/09/20 3:16 PM) 97.1 DegF (05/09/20 10:56 AM) 98 DegF (05/09/20 7:00 AM) Liters per Minute 0 L/min (05/09/20 10:56 AM) 0 L/min (05/06/20 5:00 PM) 0 L/min (05/06/20 12:00 PM) Mode of Delivery (Oxygen) Room air (05/09/20 3:16 PM) Room air (05/09/20 10:56 AM) Room air (05/09/20 7:00 AM) Blood pressure sites Arm, left (05/09/20 3:16 PM) Arm, left (05/09/20 10:56 AM) Arm, left (05/09/20 7:00 AM) Temperature Route Temporal (05/09/20 3:16 PM) Temporal (05/09/20 10:56 AM) Temporal (05/09/20 7:00 AM) Dry Weight 102 kg (05/05/20 7:00 PM) Weight Obtained Via Bed scale (05/05/20 7:00 PM) Dry Weight Obtained Via Bed scale (05/05/20 7:00 PM)
--- OUTSIDE RECORDS SUMMARY | 2023-10-18 08:51 | XMS_ITS | Continuity of Care Document ---
Author Name Unknown Organization [facility] Address [address] [place], [place] [address] [place], [address] [place] [address]- Care Team Providers Care Document Management Analyst Name Role Phone Billy FRENCH, Sylvester Thompson Primary Care Physician Encounter [facility] [place] Date(s): 05/19/20 - 05/26/20 [facility] [address] [place] [address] Drive, [address] [place] [address]- [facility] Attending Physician: Not on Staff, Attending MD Allergies, Adverse Reactions, Alerts Substance Reaction [...] Maintenance, 02/27/17 16:38:36, Route to Pharmacy Electronically, [id number], [facility] Start Date: 02/27/17 Status: Ordered [...] Maintenance, 03/10/17 14:17:47, Route to Pharmacy Electronically, [id number], [facility] 3 Start Date: 03/10/17 Status: [...] oldest [Reference Range]: 1 Height 179 cm (05/18/20 4:22 PM) Weight 102 kg (05/18/20 4:22 PM) Body Mass Index [18.5-24.99] 31.83 *>HHI* (05/18/20 4:22 PM) Social History Social History Type Response Smoking Status Never smoker; Tobacc o user in household: No entered on: 05/14/17 Sex
--- OUTSIDE RECORDS SUMMARY | 2023-10-18 08:51 | XMS_ITS | Continuity of Care Document ---
Author Name Unknown Organization [facility] Address [address] [place], [place] [address], [address] [place] [address]- Care Team Providers Care Chip Crusher Operator Name Role Phone Billy FRENCH, Sylvester Thompson Primary Care Physician [phone] Encounter [facility] [place] ACCT R [id number] Date(s): 06/23/20 - 06/30/20 [facility] [address] [place] [address] Drive, [address] [place] [address]- [facility] Attending Physician: Not on Staff, Attending MD Referring Physician: Angelica Sánchez Allergies, Adverse Reactions, Alerts Substance Reaction Severity [...] Maintenance, 02/27/17 16:38:36, Route to Pharmacy Electronically, [id number], [facility] 3 Start Date: 02/27/17 Status: [...] Maintenance, 03/10/17 14:17:47, Route to Pharmacy Electronically, [id number], [facility] 3 Start Date: 03/10/17 Status: Ordered [...] oldest [Reference Range]: 1 Height 179 cm (06/22/20 3:43 PM) Weight 95.3 kg (06/22/20 3:43 PM) Body Mass Index [18.5-24.99] 29.74 *H* (06/22/20 3:43 PM) Social History Social History Type Response Smoking Status Never smoker; Tobacc o user in household: No entered on: 05/14/17 Sex
--- OUTSIDE RECORDS SUMMARY | 2023-10-18 08:51 | XMS_ITS | Continuity of Care Document ---
Author Name Unknown Organization [facility] ter Address [address] [place] [address]- Care Team Providers Care Fuel Yard Operator Name Role Phone Sylvester Cervantes MD Primary Care Physician Encounter [facility] [place] Date(s): 03/14/21 - 04/15/[address] [address] Attending Physician: Sylvester Cervantes MD Admitting Physician: [...] Maintenance, 02/27/17 16:38:36, Route to Pharmacy Electronically, [id number], [facility] 3 Start Date: 02/27/17 Status: [...] Maintenance, 03/10/17 14:17:47, Route to Pharmacy Electronically, [id number], [facility] 3 Start Date: 03/10/17 Status: [...]
--- OUTSIDE RECORDS SUMMARY | 2023-10-18 08:51 | XMS_ITS | Continuity of Care Document ---
Author Name Unknown Organization [facility] ter Address [address] [place] [id number]- Care Team Providers Care Osteologist Name Role Phone Billy FRENCH, Sylvester Thompson Primary Care Physician [place] [facility] [place] - 07/17/[address] [address]- Discharge Disposition: A-Transfer SNF Attending Physician: Chela Vides MD Admitting Physician: Chela Vides MD Referring Physician: Not on Staff, Referring MD Allergies, Adverse Reactions, Alerts Substance Reaction Severity Status atorvastatin 1 Muscle weakness of lower extremity Pers istent Mild Active 1pravastatin ok to take Immunizations Given and Recorded Vaccine Date Status Refusal Reason SARS-CoV-2 (COVID-19) mRNA-1273 vaccine 02/14/22 R ecorded SARS-CoV-2 (COVID-19) mRNA-1273 vaccine 09/08/21 R ecorded SARS-CoV-2 (COVID-19) mRNA-1273 vaccine 01/26/21 R ecorded SARS-CoV-2 (COVID-19) mRNA-1273 vaccine 12/29/20 R ecorded pneumococcal 13-valent vaccine 1 05/09/20 Given 1Early/Late Reason: Other : UNKNOWN Medications acetaminophen 500 mg oral tablet 2 tablet = 1,000 mg, By Mouth, Every 6 hours, PRN Pain , Moderate, for 14 days, not to exceed 4000 mg/day, # 100 tablet, 0 Refills, Acute 07/31/22 14:52:00 EDT, 07/17/22 14:52:00 EDT, Tablet, Partialfill upon patient request if the prescription is fo... Start Date: 07/17/22 Stop Date: 07/31/22 Status: Ordered Acetaminophen Tablet 650 mg, Tablet, By Mouth, Every 8 hours, PRN for Pain , Moderate, Routine, 07/17/22 10:35:00 EDT Start Date: 07/17/22 Stop Date: 08/16/22 Status: Ordered amLODIPine 5 mg oral tablet 5 mg, 1, tablet, By Mouth, Daily, Refills 0, Maintenance, 05/14/17 16:40:14 Start Date: 05/14/17 Status: Ordered aspirin 81 mg oral delayed release tablet 81 mg, By Mouth, Daily, # 30 tablet, Refills 0, Tot. Refills 0, Maintenance, 02/27/17 16:38:36, Route to Pharmacy Electronically, [id number], [facility] 3 Start Date: 02/27/17 Status: Ordered Compression- [...] 1:57:00 EDT Start Date: 05/05/20 Status: Ordered lisinopril 10 mg oral tablet 10 mg, Tablet, By Mouth, 07/17/22 13:31:00 EDT Start Date: 07/17/22 Stop Date: 07/17/22 Status: Completed metoprolol 25 mg oral tablet, extended release 25 mg, 1, tablet, By Mouth, Daily, # 30 tablet, Refills 0, Tot. Refills 0, Maintenance, 03/10/17 14:17:47, Route to Pharmacy Electronically, [id number], [facility] 3 Start Date: 03/10/17 Status: Ordered metoprolol 50 mg oral tablet 50 mg, 1, tablet, By Mouth, Daily, Refills 0, Maintenance, 05/14/17 16:39:02 Start Date: 05/14/17 Status: Ordered metoprolol 50 mg oral tablet, extended release 50 mg, XL Tablet, By Mouth, 07/17/22 13:35:00 EDT Start Date: 07/17/22 Stop Date: 07/17/22 Status: Completed Metoprolol Succinate ER 50 mg oral tablet, extended release 0 Refills, Maintenance, 05/05/20 1:57:00 EDT Start Date: 05/05/20 Status: Ordered MiraLax Powder = 17 Gm, By Mouth, Daily, 0 Refills, Maintenance, 05/14/17 16:41:20 Start Date: 05/14/17 Status: Ordered morphine 15 mg oral tablet, immediate release 1 tablet = 15 mg, By Mouth, Every 6 hours, PRN Pain , Severe, for 5 days, # 10 tablet, 0 Refills, Acute 07/22/22 14:52:00 EDT, 07/17/22 14:52:00 EDT, Tablet, Partial fill upon patient request Start Date: 07/17/22 Stop Date: 07/22/22 Status: Ordered OxyCODONE IR Tablet 5 mg, Tablet, By Mouth, Once, STAT, 07/17/22 10:05:00 EDT, Stop date 07/17/22 10:05:00 EDT Start Date: 07/17/22 Stop Date: 07/17/22 Status: Completed PredniSONE = 25 mg, By Mouth, Daily, [...] Start Date: 05/09/20 Status: Ordered Problem List Condition Effective Dates Status Health Status Inform ant Obese class I(Confirmed) Active Results Radiology Reports * Exam Date Time Procedure Performing Provider Status 07/17/22 4:32 AM Tibia/Fibula 2 Views Left Levin , Fel icia; Auth (Verified) Notes: (Tibia/Fibula 2 Views Left) Reason For Exam: Pain RESULT: Tibia/Fibula 2 Views Left Ankle Min 3 Views Left, Tibia/Fibula 2 Views Left HX OF PRESENT ILLNESS: 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 FINDINGS: Oblique nondisplaced fracture of the distal fibular diaphysis. No proximal tibia or fibular fracture. Small plantar calcaneal spur. Intact ankle mortise and talar dome. Severe left knee medial compartment joint space narrowing and subchondral sclerosis. Soft tissue swelling around the ankle. Chondrocalcinosis of the lateral meniscus. IMPRESSION: Nondisplaced oblique fracture of the left distal fibula. 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 FINDINGS: Oblique nondisplaced fracture of the distal fibular diaphysis. No proximal tibia or fibular fracture. Small plantar calcaneal spur. Intact ankle mortise and talar dome. Severe left knee medial compartment joint space narrowing and subchondral sclerosis. Soft tissue swelling around the ankle. Chondrocalcinosis of the lateral meniscus. IMPRESSION: Nondisplaced oblique fracture of the left distal fibula. 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 LUNGS AND PLEURA: Low lung volumes with mild basilar atelectasis. Lungs are otherwise clear with no definite consolidation. No pleural effusion. No pneumothorax. HEART, MEDIASTINUM AND TRUNG: Mild prominence of the cardiac silhouette, unchanged. Aorta is tortuous and partially calcified. BONES AND SOFT TISSUES: No acute abnormality. Old right rib fractures. IMPRESSION: No evidence of acute abnormality. WSN: [id number] Ordering Physician: Edna Haile Dictated By: Clemente Collins MD Dictated Date/Time: 07/17/22 7:45 am Reviewed By: Clemente Collins MD Signed By: Clemente Collins MD Signed Date/Time: 07/17/22 7:45 am Transcribed By: MANAS Transcribed Date/Time: 07/17/22 7:44 am Vital Signs Most recent to oldest [Reference Range]: 1 2 3 Height 177 cm (07/17/22 4:14 PM) 177 cm (07/17/22 9:49 AM) 177 cm (07/17/22 3:24 AM) Weight 105 kg (07/17/22 4:14 PM) 105 kg (07/17/22 9:49 AM) 105 kg (07/17/22 3:24 AM) Oxygen Saturation [94-100 %] 97 % (07/17/22 4:14 PM) 100 % (07/17/22 9:49 AM) 97 % (07/17/22 7:41 AM) Pulse Rate [55-90 bpm] 74 bpm (07/17/22 4:14 PM) 79 bpm (07/17/22 1:51 PM) 73 bpm (07/17/22 9:49 AM) Body Mass Index [18.5-24.99 kg/m2] 33.52 kg/m2 *>HHI* (07/17/22 4:14 PM) 33.52 kg/m2 *>HHI* (07/17/22 9:49 AM) Blood Pressure [90-138/55-84 mm Hg] 133/93mm Hg (07/17/22 4:14 PM) 143/74mm Hg *H* (07/17/22 1:51 PM) 143/74mm Hg *H* (07/17/22 1:51 PM) Respiratory Rate [16-30 br/min] 13 br/min *L* (07/17/22 4:14 PM) 18 br/min (07/17/22 11:15 AM) 18 br/min (07/17/22 11:15 AM) Temperature [96.8-100.4 DegF] 98.0 DegF (07/17/22 4:14 PM) 97.4 DegF (07/17/22 9:49 AM) 97.6 DegF (07/17/22 7:41 AM) Mode of Delivery (Oxygen) Room air (07/17/22 4:14 PM) Room air (07/17/22 9:49 AM) Room air (07/17/22 7:41 AM) Blood pressure sites Arm, left (07/17/22 4:14 PM) Arm, left (07/17/22 9:49 AM) Arm, right (07/17/22 7:41 AM) Temperature Route Oral (07/17/22 4:14 PM) Oral (07/17/22 9:49 AM) Oral (07/17/22 7:41 AM) Dry Weight 105 kg (07/17/22 4:14 PM) 105 kg (07/17/22 9:49 AM) 105 kg (07/17/22 3:24 AM) Social History Social History Type Response Smoking Status Never (less than 100 in lifetime) entered on: 07/17/22 Sex Note * [employer] , REMY S: TRANSCRIBE Clemente Collins MD: VERIFY Event Display: Result: Authored Date: Chest Single Frontal View HX OF PRESENT ILLNESS: 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 LUNGS AND PLEURA: Low lung volumes with mild basilar atelectasis. Lungs are otherwise clear with no definite consolidation. No pleural effusion. No pneumothorax. HEART, MEDIASTINUM AND TRUNG: Mild prominence of the cardiac silhouette, unchanged. Aorta is tortuous and partially calcified. BONES AND SOFT TISSUES: No acute abnormality. Old right rib fractures. IMPRESSION: No evidence of acute abnormality. 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 FINDINGS: Oblique nondisplaced fracture of the distal fibular diaphysis. No proximal tibia or fibular fracture. Small plantar calcaneal spur. Intact ankle mortise and talar dome. Severe left knee medial compartment joint space narrowing and subchondral sclerosis. Soft tissue swelling around the ankle. Chondrocalcinosis of the lateral meniscus. IMPRESSION: Nondisplaced oblique fracture of the left distal fibula. 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 FINDINGS: Oblique nondisplaced fracture of the distal fibular diaphysis. No proximal tibia or fibular fracture. Small plantar calcaneal spur. Intact ankle mortise and talar dome. Severe left knee medial compartment joint space narrowing and subchondral sclerosis. Soft tissue swelling around the ankle. Chondrocalcinosis of the lateral meniscus. IMPRESSION: Nondisplaced oblique fracture of the left distal fibula. WSN: [id number] Ordering Physician: Edna Haile Dictated By: Clemente Collins MD Dictated Date/Time: 07/17/22 7:48 am Reviewed By: Clemente Collins MD Signed By: Clemente Collins MD Signed Date/Time: 07/17/22 7:48 am Transcribed By: MANAS Transcribed Date/Time: 07/17/22 7:46 am Care Team Personnel Name: Sylvester Cervantes MD Address: [address] [place] [address] [facility] [address]
--- OUTSIDE RECORDS SUMMARY | 2023-10-18 08:51 | XMS_ITS | Continuity of Care Document ---
Author Name Unknown Organization [facility] Address [address] [place] [address] [address] [place] [address]- Care Team Providers Care Rubber Tester Name Role Phone Billy FRENCH, Sylvester Thompson Primary Care Physician Encounter [facility] [place] ACCT R [id number] Date(s): 05/10/20 - 06/09/[address] [place] [address]- [facility] Attending Physician: Yoana Ortiz Admitting Physician: AdmtrYoana [...] Maintenance, 02/27/17 16:38:36, Route to Pharmacy Electronically, [id number], [facility] Start Date: 02/27/17 Status: [...] Maintenance, 03/10/17 14:17:47, Route to Pharmacy Electronically, [id number], [facility] 3 Start Date: 03/10/17 [...]
--- OUTSIDE RECORDS SUMMARY | 2023-10-18 08:51 | XMS_ITS | Continuity of Care Document ---
Author Name Unknown Organization [facility] ter Address [address] [place] [address]- Care Team Providers Care Administrative Tech Name Role Phone Sylvester Cervantes MD Primary Care Physician Encounter [facility] [place] Date(s): 01/19/22 - 03/04/[address] [address] Attending Physician: Sylvester Cervantes MD Admitting [...] Maintenance, 02/27/17 16:38:36, Route to Pharmacy Electronically, [id number], [facility] Start Date: 02/27/17 Status: [...] Maintenance, 03/10/17 14:17:47, Route to Pharmacy Electronically, [id number], [facility] Start Date: 03/10/17 Status: Ordered [...]
--- NOTE | 2023-10-18 11:06 | MHC.OFFWIV ---
Intake Vital Signs 10/18/23 11:12 Height 5 ft 10 in Weight 237 lb BMI 34.0 BP 112/70 Blood Pressure Location Rt brachial Position Sitting Pulse 67 Pulse Source Pulse Oximeter Temp 97.8 F Temp Source Temporal Artery Scan Pulse Oximetry (%) 96 Oxygen Delivery Method Room Air Intake Visit Reasons: EP RT hand pain/swollen [id number] Intake Note: pt is here today for hand pain swollen started 2 or 3 days ago. Patient Tobacco Use Status: Never used Tobacco Allergies Vzfabku-LWB-AgX Reductase Inhibitor [RHJEXGK-PDC-EDQ REDUCTASE INHIBITOR] Allergy (Unknown, Verified 10/18/23 11:14) UNKNOWN Do you need a note to return to daycare/school/sports/work: No HPI EP RT hand pain/swollen [id number] HPI Details This is a 73 year old gentleman who presents with a 1-2 day history of right wrist swelling and tenderness. No trauma or injury. [facility] Medical History No known health problems Social History Patient Tobacco Use Status: Never used Tobacco Review of Systems Const All systems reviewed & are unremarkable except as noted in HPI and below Physical Exam Vital Signs: Last Vital Signs Temp 97.8 F 10/18/23 11:12 Pulse 67 10/18/23 11:12 BP 112/70 10/18/23 11:12 Pulse Ox 96 10/18/23 11:12 Oxygen Delivery Method Room Air 10/18/23 11:12 BMI result Body Mass Index 34.0 Const General: cooperative, healthy appearing and no acute distress Neck Neck: Yes no lymphadenopathy Resp Effort & Inspection: normal respiratory effort and able to speak in complete sentences Auscultation: clear to auscultation bilaterally Cardio Jugular venous distension: no JVD Palpation: normal PMI Rate: regular rate Rhythm: regular rhythm Skin General skin exam: no rashes or lesions noted Extrem Right upper extremity: full ROM, normal capillary refill and wrist (swelling/ttp at distal radius) Details: normal vascular exam Psych Appearance: grossly normal Mental Status: mental status grossly normal Speech and movement: Normal speech and movement present Assessment & Plan Assessment & Plan (1) Swelling of joint, wrist, right: Code(s): M25.431 - Effusion, right wrist Plan: XR obtained in the office: Chondrocalcinosis. 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 Nonspecific cystic change versus marginal erosion of the ulnar styloid. This could also reflect an erosive change related to gout. Cannot exclude concomitant inflammatory arthropathy although thought to be less likely. His symptoms today are consistent with a gout flare. Patient has had gout in the past and done well on prednisone taper. I will prescribe this. We reviewed indications, use, possible s/e of this medication. He can ice area as needed for comfort. If he does not improve with treatment he should f/u with PCP as he may need to start gour prevention medication. He and present at visit verbalize understanding and agree to plan. Orders: Orders XR hand wrist RT Today M25.431 - Effusion, right wrist Medications: New prednisone Take 4 tabs for two days, then take 3 tabs for two days, then take 2 tabs for two days, then take 1 tab for 2 days. 10 mg PO DAILY 20 tabs 0RF M10.9 - Gout, unspecified Coding Level of Care Code Est Pt Level 3 (92790) Diagnoses Swelling of joint, wrist, right M25.431
[2023-10-18 11:12] VITALS: BP 112/70; PULSE 67; TEMP 36.6; O2SAT 96; BMI 34.0
== END 2023-10-18 12:05 | disposition home or self-care (01) ==
PROVIDERS: Visit Provider Nurse Practitioner Family
DX: M25.431 Effusion, right wrist (principal)
CPT/HCPCS: 99213

== ENCOUNTER 2023-10-18 11:37 | Outpatient (REF) | payer MEDICARE, SELFPAY ==
--- NOTE | ~2023-10-18 | XR_ITS ---
EXAMINATION: XR WRIST, RIGHT XR HAND, RIGHT CLINICAL INFORMATION: Effusion, right wrist. COMPARISON: None available. TECHNIQUE: PA, lateral, and oblique views of the right wrist and PA, lateral, and oblique views of the right hand FINDINGS: RIGHT WRIST: There is chondrocalcinosis. First carpometacarpal joint: There are marginal osteophytes and subchondral cystic change indicative of mild osteoarthritis. There is lucency in the proximal portion of the ulnar styloid which has the appearance of a cyst but cannot exclude marginal erosion. There is arterial calcification. Remaining bone and joints are unremarkable. RIGHT HAND: Metacarpophalangeal joints: Second metacarpophalangeal joint: There is chondrocalcinosis. There are marginal osteophytes and nonuniform joint space narrowing with some cystic change in the metacarpal head compatible with [id number] osteoarthritis. Third metacarpophalangeal joint: Marginal osteophytes with some joint space narrowing indicative of mild osteoarthritis. Interphalangeal joints: There is mild osteoarthritis of the IP joint of the thumb and third and fourth DIP joints manifested by marginal osteophytes and/or subchondral cystic change. The surrounding bone and soft tissues are unremarkable. XR/XR hand wrist RT IMPRESSION: RIGHT WRIST: Chondrocalcinosis. 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 Nonspecific cystic change versus marginal erosion of the ulnar styloid. This could also reflect an erosive change related to gout. Cannot exclude concomitant inflammatory arthropathy although thought to be less likely. RIGHT HAND: Chondrocalcinosis. Osteoarthritis of the hand and wrist.
== END 2023-10-18 11:38 | disposition home or self-care (01) ==
LOC: HO.HMGCX 11:37
PROVIDERS: Visit Provider Nurse Practitioner Family
DX: M25.431 Effusion, right wrist (principal)
CPT/HCPCS: 73110; 73130

== ENCOUNTER 2023-12-18 15:50 | Emergency (ER) | payer MEDICARE, SELFPAY ==
--- NOTE | ~2023-12-18 | CT_ITS ---
EXAMINATION: CT HEAD WITHOUT CONTRAST CT CERVICAL SPINE WITHOUT CONTRAST CLINICAL INFORMATION: Fall. Pain. COMPARISON: CT head and cervical spine 05/04/2020. TECHNIQUE: [employer] images were obtained. CT imaging of the head and cervical spine was performed without contrast. Data was reformatted into multiplanar images at the acquisition workstation. This CT examination was performed using dose optimization techniques as appropriate, including one or more of the following: Automated exposure control, iterative reconstruction, and adjustment of technique factors (mA and/or kVp) according to patient size (this includes techniques or standardized protocols for targeted exams where dose is matched to indication/reason for exam). Fleischner Society criteria for the followup of incidental pulmonary nodules was implemented if appropriate. DLP: 1390 mGy-cm. 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 Scattered nonspecific foci of hypoattenuation are also visualized within the periventricular white matter and basal ganglia that most likely represent a chronic manifestation of small vessel ischemia. Grossly no evidence of acute territorial infarct. No acute hemorrhage or abnormal extra-axial collection. No intracranial mass effect or hydrocephalus. The calvarium and skull base are grossly intact. No mastoid middle ear effusion. No active paranasal sinus disease. Cervical spine: Slight anterolisthesis of C3 on C4 that appears related to advanced facet degenerative changes at this level. Alignment is otherwise normal. Vertebral heights are preserved. No acute fracture. No abnormal prevertebral soft tissue swelling. There is an enostosis within the T1 vertebral body that has remained stable when compared to prior imaging. Grossly no spinal canal compromise. Uncovertebral joint spurring in conjunction with facet degenerative change causes varying degrees of neuroforaminal encroachment. Lung apices are clear. CT/CT cervical spine wo IV con IMPRESSION: Head: No acute intracranial hemorrhage. 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 There is also a chronic left cerebellar infarct. Scattered chronic small vessel ischemic changes are also visualized within the periventricular white matter and basal ganglia. Grossly no evidence of acute territorial infarct. Cervical Spine: No evidence of acute fracture and no posttraumatic spinal subluxation. There is advanced multilevel degenerative spondylosis of the cervical spine with slight anterolisthesis of C3 on C4 related to advanced facet degenerative changes at this level.
[2023-12-18 15:56] VITALS: BP 136/82; PULSE 80
[2023-12-18 16:01] VITALS: BP 97/54; PULSE 75; RESP 16; TEMP 36.6; O2SAT 95; BMI 32.6
--- NOTE | 2023-12-18 16:42 | ED.GENADULT ---
HPI - General Adult General Chief complaint: Weakness Stated complaint: ETOH FELL TO KNEES Time Seen by Provider: 12/18/23 16:24 Source: patient Mode of arrival: ambulatory Limitations: no limitations History of Present Illness HPI narrative: 73 yold male with pmh of alcohol abuse presents to the ED for drinking 4 to 6 hard 12 ounce hard alochol ciders and than falling unto his knees on the driveway. Patient denies hitting head or loss of consciousness. Neighbor called ambulance because he fell. informed nurse that patient has history of falling after his drinking binge. Patient does not want detox. patient denies any chest pain, shortness of breath, abdominal pain, dizziness, pain in extremities, headache, tingling, or hallucinations. Related Data Previous Rx's Medication Instructions Recorded prednisone 10 mg tablet 10 mg PO DAILY #20 tabs 10/18/23 Allergies Allergy/AdvReac Type Severity Reaction Status Date / Time Dorzwtk-UER-UpP Reductase Allergy Unknown UNKNOWN Verified 10/18/23 11:14 Inhibitor [ZERUTPR-BTG-BRM REDUCTASE INHIBITOR] Review of Systems Review of Systems: fall unto his knees while drinking. Yes all other systems are reviewed and are negative [facility] Past Medical History Medical History No known health problems Social History Social History Patient Tobacco Use Status: Never used Tobacco Smoked in Last 30 Days: No Use of substances other than those prescribed or required for medical reasons: No Advance Directives: No Advance Directives Information Provided: No Physical Exam ED Vital Signs: Vital Signs - 24 hr 12/18/23 16:01 12/18/23 17:00 Temperature 97.9 F 977 F H Pulse Rate 75 65 Respiratory Rate 16 16 Blood Pressure 97/54 L 106/60 Pulse Oximetry 95 96 Oxygen Delivery Method Room Air BMI result Body Mass Index 32.6 Const General: cooperative, healthy appearing, comfortable, no acute distress, well developed, alert, awake and Physically active Orientation/consciousness: oriented to person, oriented to place, oriented to time and patient oriented x3 HENMT Head: Yes normal to inspection, Yes No palpable skull fracture present, Yes normocephalic, Yes atraumatic and No abrasion Ears: hearing grossly normal bilaterally, external ears normal, TM's normal bilaterally, TM normal on the right, TM normal on the left, EAC's normal and no periauricular adenopathy Teeth and gingiva: dentition normal and gingiva normal Eyes General: appearance normal, both eyes and all related structures Visual Mccray: normal visual mccray by confrontation Alignment and Position: alignment normal Periorbital: periorbital findings normal Eyelids: Yes eyelids normal Conjunctivae: conjunctivae normal Sclerae: sclerae normal Corneas: corneas normal Pupils: Equal, round and reactive pupils present EOM: EOMs intact bilaterally Neck Neck: Yes normal visual inspection, Yes full ROM, Yes no lymphadenopathy, Yes no meningeal signs, Yes trachea midline, Yes supple, No anterior neck swelling and No tender Chest Chest palpation & inspection: normal inspection of the chest and normal palpation of entire chest wall Resp Effort & Inspection: normal respiratory effort and able to speak in complete sentences Auscultation: clear to auscultation bilaterally Cardio Jugular venous distension: no JVD Heart sounds: S1 normal heart sound present and S2 normal heart sound present GI Inspection: Yes normal to inspection Palpation (GI): Soft to palpation, not firm, nontender, no guarding and not rigid General: Yes no CVA tenderness Back/Spine/Pelvis Back: no CVA tenderness and No back tenderness Skin General skin exam: no rashes or lesions noted, elasticity normal and turgor normal Neuro Other: Significant smell of alcohol on breath General: oriented to person, oriented to place, oriented to time, patient oriented x3, gait normal, tone normal, moves all extremities, Normal light touch and pain sensation, no meningeal signs, no focal motor deficits, CN's II-XI intact bilaterally and normal sensation to monofilament Cranial nerves: Yes Equal, round and reactive pupils present Extrem Other: mild bilateral knee abrasions General: Yes normal to inspection, Yes full ROM and Yes capillary refill normal Psych Other: Alcohol on breath Appearance: grossly normal, well kempt and not disheveled Medical Decision Making Medical Decision Making MDM Narrative: 73-year-old male history of alcohol abuse presents to ED for falling after drinking 4-6 12 oz alcohol hard cider hours. Patient states fell onto his knees and denies hitting head. Neighbor called due to patient falling. No signs of head injury on physical exam due to patient drinking although denies hitting his head we will send for CT scan. Patient initially refusing imaging was sent for CT scan. Repeat blood pressure normotensive patient neuro exam intact. Negative for tremors. Will re-evaluate patient. 5:30pm: patient is refusing imaging as per Crab Catcher Jolly. I went to speak to patient who refused imaging. Patient agains retirates that he did not hit his head, body did not hit the floor and has no knee pain. Patient A0x3. WHole body was evaluated and negative for signs of trauma or life threatening injuries. Radha was informed due to his drinking I wanted to scan his head and was expaliend risks of from bleeding, skull fracturure or cervical spine fracture. Patient still refused. knee xrays cancelled. Will talk to patient later in the ED to re-discuss imaging of the head. 9:29pm: Patient alert oriented x3. Patient agreeable to a head CT cervical spine CT scan which were normal. Patient refused bilateral knee x-rays. Patient has normal gait. 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 Patient once again does not want detox. Patient has no signs of neuro deficits. Patient looks stronger and walking fine. No signs of dehydration. Patient denies any weakness, chest pain, shortness of breath, or any other complaints. Differential Diagnosis Differential Diagnoses: The differential diagnosis associated with the presentation includes (Debride, cervical spine fracture, knee sprain, alcohol abuse, alcohol intoxication) Admission/Observation Consideration of admission/observation: Escalation of care including admission/observation considered Independent Interpretation I performed an independent interpretation of an: CT Scan Radiology Impression Discussion of test interpretation with radiology: I have reviewed the radiologist's reading. Independent Historian Clinical information obtained from an independent historian. History obtained from or confirmed by: EMS External Record Review External record reviewed: Other (Prior visits) Discharge Plan Discharge Clinical Impression: Alcohol abuse, Fall Patient Disposition: Home, Self-Care Instructions: Fall Prevention for Older Adults (ED), Abuse of Alcohol (ED) Additional Instructions: Recommend follow-up with your primary care provider. Return to the ED immediately for any chest pain, shortness of breath, headache, dizziness, nausea, vomiting, rectal bleeding, bloating vomiting blood, bluish black discoloration, pain in extremities, seizures, hallucinations, or any other concerning symptoms. Prescriptions: No Action prednisone 10 mg tablet 10 mg PO DAILY Qty: 20 0RF Rx Instructions: Take 4 tabs for two days, then take 3 tabs for two days, then take 2 tabs for two days, then take 1 tab for 2 days. Interventions: ED Discharge Assessment Last Done: 12/18/23 21:52 Discharge Date/Time: 12/18/23 21:53 Print Language: Peruvian
--- NOTE | 2023-12-18 16:52 | PC.NURSE ---
Patient's , Michelle at bedside asking about plan of care, states patient is followed by neurology @ [facility] for lower neuromuscular disorder currently on prednisone PO. Can be contacted at [phone] (home), (cell).
[2023-12-18 17:00] VITALS: BP 106/60; PULSE 65; RESP 16; TEMP 525; TEMP 977; O2SAT 96
--- NOTE | 2023-12-18 20:12 | PC.NURSE ---
Addendum entered by Violeta Leal RN 12/18/23 20:13: CORRECTION: CT scan waiting to be READ Original Note: Patient consented to CT scan, CT scan awaitng to be scanned.
--- NOTE | 2023-12-18 21:02 | PC.NURSE ---
Assumed care of pt. Pt lying on stretcher, no acute distress at this time, pending disposition.
== END 2023-12-18 21:53 | disposition home or self-care (01) ==
PROVIDERS: Emergency Provider Internal Medicine
DX: F10.10 Alcohol abuse, uncomplicated (principal); Y90.9 Presence of alcohol in blood, level not specified; Z91.81 History of falling
CPT/HCPCS: 70450; 72125; 99284

== ENCOUNTER 2024-02-13 17:05 | Emergency (ER) | payer MEDICARE, SELFPAY ==
--- NOTE | ~2024-02-13 | XR_ITS ---
EXAMINATION: LEFT HAND LUMBAR SPINE CLINICAL INFORMATION: Fall. Pain. Hand laceration COMPARISON: Lateral view of the lumbar spine 05/15/22 TECHNIQUE: 3 views of the left hand 3 views of lumbar spine FINDINGS: Left hand: There is no acute fracture or subluxation. Metallic densities project over the region of the first carpometacarpal joint in the region of the lunate. There is joint space narrowing. There are cystic erosive changes. There is soft tissue swelling. Mineralization and soft tissues around the carpus with proliferative changes in the region of the distal radioulnar joint. I suspect widening of the articulation between the navicular and lunate. Lumbar spine: There are 5 lumbar-type vertebrae. There are extensive bridging osteophytes and/or syndesmophytes spanning the lower thoracic and lumbar spine including the lumbosacral junction. This results in a so-called rigid spine. No convincing acute fracture demonstrated. There is facet disease. No large paraspinal abnormality demonstrated. XR/XR lumbar spine 2-3V IMPRESSION: Rigid spine with extensive proliferative changes. I cannot diagnose a definite acute fracture or subluxation. If the patient has persistent unexplained signs or symptoms of fracture consider CT.
--- NOTE | ~2024-02-13 | XR_ITS ---
EXAMINATION: LEFT HAND LUMBAR SPINE CLINICAL INFORMATION: Fall. Pain. Hand laceration COMPARISON: Lateral view of the lumbar spine 05/15/22 TECHNIQUE: 3 views of the left hand 3 views of lumbar spine FINDINGS: Left hand: There is no acute fracture or subluxation. Metallic densities project over the region of the first carpometacarpal joint in the region of the lunate. There is joint space narrowing. There are cystic erosive changes. There is soft tissue swelling. Mineralization and soft tissues around the carpus with proliferative changes in the region of the distal radioulnar joint. I suspect widening of the articulation between the navicular and lunate. Lumbar spine: There are 5 lumbar-type vertebrae. There are extensive bridging osteophytes and/or syndesmophytes spanning the lower thoracic and lumbar spine including the lumbosacral junction. This results in a so-called rigid spine. No convincing acute fracture demonstrated. There is facet disease. No large paraspinal abnormality demonstrated. XR/XR hand LT min 3V IMPRESSION: Rigid spine with extensive proliferative changes. I cannot diagnose a definite acute fracture or subluxation. If the patient has persistent unexplained signs or symptoms of fracture consider CT.
--- NOTE | ~2024-02-13 | CT_ITS ---
EXAMINATION: CT CERVICAL SPINE WITHOUT CONTRAST CLINICAL INFORMATION: Neck pain, trauma. COMPARISON: 12/18/2023 and 05/04/2020 TECHNIQUE: Multiple helical unenhanced images were acquired through the cervical spine. Multiplanar computer reformatted images were acquired from the dataset in the sagittal and coronal plane. This CT examination was performed using dose optimization techniques as appropriate, variously including the following: *Automated exposure control *Adjustment of mA and/or kV according to patient size (this includes techniques or standardized protocols for targeted exams where dose is matched to indication/reason for exam; i.e. extremities or head) *Use of iterative reconstruction technique DLP: 702 mGy-cm FINDINGS: CT examination of the cervical spine shows no prevertebral soft tissue swelling. Vertebral body height and alignment are maintained. No acute fracture or subluxation is evident. The odontoid process, cervicothoracic and cervical medullary junctions are normal. There are no bone lesions. As on prior studies, multilevel degenerative changes are evident with disc space narrowing and osteophytes at C4-C5, C5-C6 and C6-C7. Sclerotic lesion in T1 is unchanged and presumably a bone island. The posterior elements and odontoid process are intact. CT/CT cervical spine wo IV con IMPRESSION: 1. No acute cervical spine fracture or subluxation. Fleischner guidelines were followed.
--- NOTE | ~2024-02-13 | CT_ITS ---
EXAMINATION: CT HEAD WITHOUT CONTRAST CLINICAL INFORMATION: Fall, head pain COMPARISON: Head CT of 12/18/2023 TECHNIQUE: Contiguous axial imaging was performed from the skull base to vertex without intravenous administration of contrast. This CT examination was performed using dose optimization techniques as appropriate, variously including the following: *Automated exposure control *Adjustment of mA and/or kV according to patient size (this includes techniques or standardized protocols for targeted exams where dose is matched to indication/reason for exam; i.e. extremities or head) *Use of iterative reconstruction technique DLP: 945.50 mGy-cm FINDINGS: CT examination of the brain shows extensive age-related involutional changes with prominence of the ventricles and sulci, not significantly changed. Periventricular white matter hypodensities are evident, likely on the basis of chronic microvascular ischemic disease, also stable. 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 There is a large right posterior parietal scalp hematoma. No underlying intracranial acute hemorrhage, mass effect, fracture or shift is evident. In the posterior fossa, the brainstem, cerebellum and fourth ventricle are unremarkable. The orbits and bony calvarium are intact. The paranasal sinuses and mastoid air cells are well pneumatized and clear. CT/CT head/brain wo IV con IMPRESSION: 1. Large right posterior parietal scalp hematoma but no underlying fracture or intracranial hemorrhage. 2. 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 2. No acute intracranial pathology.
[2024-02-13 17:22] VITALS: BP 155/92; BP 160/110; PULSE 101; PULSE 96; RESP 18; TEMP 37.3; O2SAT 95; O2SAT 97; BMI 33.7
--- NOTE | 2024-02-13 17:36 | ED_ITS ---
HPI - General Adult General Chief complaint: Fall Stated complaint: 84 yrold m fell down 4-5 steps. Back pain, per ems Time Seen by Provider: 02/13/24 17:07 Source: patient, RN notes reviewed and old records reviewed Mode of arrival: EMS Limitations: no limitations History of Present Illness HPI narrative: 74-year-old male with past medical history significant for renal cancer status post nephrectomy, hyperlipidemia presents for evaluation after a fall. Patient reports a history of leg weakness ?ever since I had the nephrectomy for cancer. ? He states his strength never recovered Patient states that he was at the [employer] when ?my legs felt weak and I fell down. ? Patient reports this has happened before were both of his legs give out. He reports that he fell approximately 4 steps falling backwards He did strike the back of his head but denies loss of consciousness. He also injured his left hand and lower back Patient has a small laceration to the right posterior scalp, left hand He has not anticoagulated Denies any chest pain, shortness of breath, abdominal pain nausea vomiting He is unsure when his last tetanus shot was Related Data Previous Rx's ?Medication ?Instructions ?Recorded prednisone 10 mg tablet 10 mg PO DAILY #20 tabs 10/18/23 Allergies Allergy/AdvReac Type Severity Reaction Status Date / Time Ydolljl-HPE-HcD Reductase Allergy Unknown UNKNOWN Verified 02/13/24 17:27 Inhibitor [AROLYTL-LKT-SAZ REDUCTASE INHIBITOR] Review of Systems 2 Constitutional: Constitutional: Denies chills, Denies fever(s), Denies headache(s) and Reports weakness (Bilateral leg weakness) Eyes: Eyes: Denies blurry vision ENT: Denies headache(s) and Denies sore throat Cardiovascular: Cardiovascular: Denies chest pain and Denies dyspnea Respiratory: Respiratory: Denies cough and Denies dyspnea Gastrointestinal: Gastrointestinal: Denies abdominal pain, Denies nausea and Denies vomiting Musculoskeletal: Musculoskeletal: Reports back pain, Denies arthralgias and Denies joint swelling Integumentary/Breasts: Skin/Breast: Reports wounds Neurologic: Denies headache(s) and Reports weakness (Bilateral leg weakness) [facility] Past Medical History Medical History No known health problems Social History Social History Patient Tobacco Use Status: Never used Tobacco Advance Directives: No Advance Directives Information Provided: No Physical Exam ED Vital Signs: Vital Signs - 24 hr 02/13/24 17:22 02/13/24 18:48 02/13/24 19:23 Temperature 99.2 F 97.2 F 98.2 F Pulse Rate 101 H 92 91 Respiratory Rate 18 18 16 Blood Pressure 155/92 H 134/91 H 100/71 Pulse Oximetry 95 97 96 Oxygen Delivery Method Room Air Room Air Room Air BMI result Body Mass Index 33.7 Const General: healthy appearing, comfortable, no acute distress, alert and awake Nutritional Appearance: well nourished Orientation/consciousness: patient oriented x3 HENMT Other: Patient has a subcentimeter right posterior scalp laceration, no active bleeding. Throat: Yes posterior oropharynx normal Eyes Eyelids: Yes eyelids normal Conjunctivae: conjunctivae normal Sclerae: sclerae normal Corneas: corneas normal Pupils: Equal, round and reactive pupils present EOM: EOMs intact bilaterally Neck Other: There is no C-spine tenderness Neck: Yes full ROM Resp Effort & Inspection: normal respiratory effort, able to speak in complete sentences and not labored GI Inspection: No distended Palpation (GI): Soft to palpation, not firm, nontender, no guarding and not rigid Back/Spine/Pelvis Other: There is no significant thoracic or lumbar spinal tenderness. No step-offs or deformities. Skin Other: Patient has a 2 cm laceration to the left hand overlying the 2nd and 3rd MCP joints. General skin exam: elasticity normal Neuro Other: Patient has 3/5 strength of flexion of each lower extremity at the waist. General: patient oriented x3 Cranial nerves: Yes CN's II-XII intact bilaterally, Yes Equal, round and reactive pupils present and Yes Bilaterally intact EOM present Cognition (Neuro): normal cognition Motor exam (neuro): strength not 5/5 throughout Extrem Other: Moving all extremities well without any obvious deformities. Patient has full range of motion with flexion-extension of all fingers of both hands. He is able to flex and extend the bilateral lower extremities at the waist without discomfort Course Reevaluation(s) Reevaluation #1: I cleaned indicate patient's posterior scalp, reinspected the wound and is by half a cm, well approximated, no bleeding. Does not require closure. Time: 18:52 Medications Administered Discontinued Medications Generic Name Dose Route Start Last Admin Trade Name Gregory PRN Reason Stop Dose Admin Diphtheria/Tetanus/Acell Pertussis 0.5 ml 02/13/24 17:26 02/13/24 18:39 Diphth,Pertus(Acell),Tet Adult 0.5 Ml Syringe IM 02/13/24 17:27 0.5 ml .ONCE ONE Administration Lidocaine/Epinephrine 10 ml 02/13/24 17:26 02/13/24 18:41 Lidocaine Hcl 1%/Epi 1:100,000 10 Ml Vial INFILTRATI 02/13/24 17:27 10 ml ONCE ONE Administration Procedures Laceration Laceration 1: Site: hand Side (If applicable): right Size (cm): 2 Description: linear Depth: simple, single layer Local Anesthetic: lidocaine 1% and with epi Amount of anesthesia used (mL): 2 Pre-repair: wound explored, irrigated extensively and deep structures intact Skin layer closed with: nylon Size (cm): 4-0 Number of sutures: 4 Technique: simple, interrupted Medical Decision Making Medical Decision Making [facility] Narrative: 74-year-old male presents for evaluation after a fall. He reports he has chronic lower extremity weakness bilaterally. Reports his legs gave out while walking up the steps. He sustained a small laceration to the posterior scalp, laceration to left hand. There is no evidence of neurovascular involvement. See procedure note for wound repair of the left hand. Plan for CT scan of the cervical spine and brain given the fall with head strike. Plan for x-rays of the left hand. For x-rays of lumbar spine is reports hitting this area despite having minimal lumbar tenderness. Differential Diagnosis Differential Diagnoses: The differential diagnosis associated with the presentation includes Mechanical fall Nonsyncopal fall Cervical strain Cervical fracture Intracranial hemorrhage Laceration Contusion Vertebral fracture Lab Data [facility] Lab Attestation statement: I reviewed the patient's lab results. No leukocytosis. The patient has a mild normocytic anemia which she has had in the past. Likely his baseline. Patient's chemistries have no significant abnormalities. His BUN is slightly elevated 26 with normal creatinine again which is consistent with his baseline 02/13/24 19:20 02/13/24 19:20 Labs: Lab Results 02/13/24 Range/Units 19:20 WBC 8.4 (4.8-10.8) X10*3/uL RBC 4.17 L (4.60-5.80) X10*6/uL Hgb 13.4 L (14.0-18.0) g/dl Hct 39.8 L (42.0-52.0) % MCV 95.4 (80.0-98.0) fL MCH 32.1 (27.0-33.0) pg MCHC 33.7 (31.0-36.0) g/dl RDW 13.6 (11.0-16.0) % Plt Count 143 L (160-400) X10*3/uL MPV 9.7 (9.4-12.4) fL Immature Gran % (Auto) 0.4 (0.0-0.4) % Neut % (Auto) 80.0 H (45-73) % Lymph % (Auto) 8.7 L (20-40) % [place] % (Auto) 10.5 (2-11) % Eos % (Auto) 0.2 (0-4) % Baso % (Auto) 0.2 (0-2) % Lymph # (Auto) 0.7 L (1.2-4.9) X10*3/uL [place] # (Auto) 0.9 (0.1-1.2) X10*3/uL Eos # (Auto) 0.0 (0.0-0.4) X10*3/uL Baso # (Auto) 0.0 (0.0-0.2) X10*3/uL Abs Immat Gran (auto) 0.03 (0.00-0.03) X10*3/uL Absolute Neuts (auto) 6.7 (2.0-8.3) x10*3/uL Absolute Nucleated RBC 0.000 (0.0-0.012) X10*3/uL Nucleated RBC % (auto) 0.0 (0.0-0.2) /100WBC Sodium 138 (135-145) mmol/L Potassium 4.4 (3.3-5.1) mmol/L Chloride 108 (96-108) mmol/L Carbon Dioxide 23 (22-29) mmol/L Anion Gap 11 L (12-20) BUN 26 H (9-16) mg/dL Creatinine 1.01 (0.5-1.4) mg/dL Estim Creat Clear Calc 76.0 Estimated GFR > 60 Random Glucose 108 (60-115) mg/dL Calcium 9.3 (8.4-10.2) mg/dL Total Bilirubin 0.3 (0.0-1.0) mg/dL AST 18 (5-37) U/L ALT 21 (0-40) U/L Alkaline Phosphatase 57 (39-117) U/L Total Protein 6.3 L (6.5-8.0) g/dL Albumin 3.9 (3.5-5.0) g/dL Independent Interpretation I performed an independent interpretation of an: EKG, Plain X-Ray and CT Scan (Head CT with likely age-related atrophy but no evidence of hemorrhage) Interpretation: Normal sinus rhythm with a rate of [address] changes when compared to July 14, 2021. Radiology Impression Discussion of test interpretation with radiology: I have reviewed the radiologist's reading. Radiologist Impression: IMPRESSION: 1. Large right posterior parietal scalp hematoma but no underlying fracture or intracranial hemorrhage. 2. 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 2. No acute intracranial pathology. IMPRESSION: 1. No acute cervical spine fracture or subluxation. IMPRESSION: Rigid spine with extensive proliferative changes. I cannot diagnose a definite acute fracture or subluxation. If the patient has persistent unexplained signs or symptoms of fracture consider CT. Left hand: There is no acute fracture or subluxation. Discharge Plan Discharge Clinical Impression: Fall, Laceration of hand, left Patient Disposition: Home, Self-Care Instructions: Laceration (ED) Additional Instructions: Your workup in the ER today was reassuring. This includes your CT imaging, x-ray of the hand and lower back. Your blood work was also reassuring. You had 4 sutures placed to your left hand today. These can be removed in 10-14 days. Keep the area clean and dry. Your tetanus was updated today Prescriptions: No Action prednisone 10 mg tablet 10 mg PO DAILY Qty: 20 0RF Rx Instructions: Take 4 tabs for two days, then take 3 tabs for two days, then take 2 tabs for two days, then take 1 tab for 2 days. Print Language: Czech
--- NOTE | 2024-02-13 17:50 | ECG_ITS ---
Test Reason : FALL Blood Pressure : / mmHG Vent. Rate : 091 BPM Atrial Rate : 091 BPM P-R Int : 202 ms QRS Dur : 094 ms QT Int : 354 ms P-R-T Axes : 046 -63 011 degrees QTc Int : 435 ms Normal sinus rhythm Mild NJ prolongation Left axis deviation Inferior infarct (cited on or before 04-MAY-2020) Anterolateral infarct (cited on or before 04-MAY-2020) Abnormal ECG When compared with ECG of 14-JUL-2021 17:33, NJ interval has decreased Questionable change in initial forces of Lateral leads QT has lengthened Referred By: Jacoby Sawant Electronically Signed By:JANNET MAHONEY
[2024-02-13] MEDS: Diphth,Pertus(ACell),Tet Adult 0.5 ML SYRINGE IM (18:39)
[2024-02-13] MEDS: Lidocaine HCl 1%/Epi 1:100,000 10 ML VIAL INFILTRATI (18:41)
[2024-02-13 18:48] VITALS: BP 134/91; PULSE 92; RESP 18; TEMP 36.2; O2SAT 97
[2024-02-13 19:23] VITALS: BP 100/71; PULSE 91; RESP 16; TEMP 36.8; O2SAT 96
[2024-02-13 19:23] LABS: MANUAL DIFF FLAG NO
--- NOTE | 2024-02-13 19:25 | MHC.EDTECH ---
Patient ekg taken and was read by provider ,blood drawn and sent to lab ,and vitals taken .
[2024-02-13 19:34] LABS: Basophils Percent Auto 0.2 % (0-2); Eosinophils Percent Auto 0.2 % (0-4); Hematocrit 39.8 % (42.0-52.0); Hemoglobin 13.4 g/dl (14.0-18.0); Imm Gran Abs Auto 0.03 X10*3/uL (0.00-0.03); Imm Gran Pct Auto 0.4 % (0.0-0.4); Lymphocytes Absolute Auto 0.7 X10*3/uL (1.2-4.9); Lymphocytes Percent Auto 8.7 % (20-40); Mean Corpuscular HGB Conc 33.7 g/dl (31.0-36.0); Mean Corpuscular Hemoglobin 32.1 pg (27.0-33.0); Mean Corpuscular Volume 95.4 fL (80.0-98.0); Mean Platelet Volume 9.7 fL (9.4-12.4); Monocytes Absolute Auto 0.9 X10*3/uL (0.1-1.2); Monocytes Percent Auto 10.5 % (2-11); Neutrophils Absolute Auto 6.7 x10*3/uL (2.0-8.3); Platelet Count 143 X10*3/uL (160-400); Red Blood Count 4.17 X10*6/uL (4.60-5.80); Red Cell Distribution Width 13.6 % (11.0-16.0); White Blood Count 8.4 X10*3/uL (4.8-10.8)
[2024-02-13 19:40] LABS: Alanine Aminotransferase 21 U/L (0-40); Albumin Level 3.9 g/dL (3.5-5.0); Alkaline Phosphatase 57 U/L (39-117); Anion Gap 11 (12-20); Aspartate Amino Transferase 18 U/L (5-37); Bilirubin Total 0.3 mg/dL (0.0-1.0); Blood Urea Nitrogen 26 mg/dL (9-16); Calcium 9.3 mg/dL (8.4-10.2); Carbon Dioxide 23 mmol/L (22-29); Chloride 108 mmol/L (96-108); Estimated Glomerular Filt Rate > 60; Glucose Random 108 mg/dL (60-115); Potassium 4.4 mmol/L (3.3-5.1); Sodium 138 mmol/L (135-145); Total Protein 6.3 g/dL (6.5-8.0)
[2024-02-13 20:46] VITALS: BP 106/72; PULSE 88; RESP 16; TEMP 36.8; O2SAT 98
[2024-02-13 21:48] VITALS: BP 106/72; PULSE 88; RESP 16; TEMP 36.8; O2SAT 98
== END 2024-02-13 21:49 | disposition home or self-care (01) ==
PROVIDERS: Physician Assistant; Emergency Provider Emergency Medicine
DX: S61.412A Laceration without foreign body of left hand, initial encounter (principal); S01.01XA Laceration without foreign body of scalp, initial encounter; M54.50 Low back pain, unspecified; Z85.528 Personal history of other malignant neoplasm of kidney; Z90.5 Acquired absence of kidney; W10.9XXA Fall (on) (from) unspecified stairs and steps, initial encounter; Y93.9 Activity, unspecified; Y92.241 Library as the place of occurrence of the external cause; Y99.9 Unspecified external cause status
CPT/HCPCS: 12001; 36415; 70450; 72100; 72125; 73130; 80053; 85025; 90471; 90715; 93005; 99284

== ENCOUNTER → 2024-02-13 17:50 | Outpatient (BNV) | payer MEDICARE, SELFPAY | PROVIDERS: Emergency Provider Emergency Medicine; Visit Provider Internal Medicine | DX: R94.31 Abnormal electrocardiogram [ECG] [EKG] (principal) | CPT/HCPCS: 93010 ==

== ENCOUNTER 2024-03-03 11:34 | Outpatient (AMB) | payer MEDICARE, SELFPAY ==
[2024-03-03 11:44] VITALS: BP 118/80; PULSE 67; TEMP 36.4; O2SAT 97; BMI 32.7
--- NOTE | 2024-03-03 11:44 | AM.OFFWIN_ITS ---
Intake Vital Signs 03/03/24 11:44 Height 5 ft 10 in Weight 228 lb BMI 32.7 BP 118/80 Blood Pressure Location Lt brachial Position Sitting Pulse 67 Pulse Source Pulse Oximeter Temp 97.5 F Temp Source Temporal Artery Scan Pulse Oximetry (%) 97 Oxygen Delivery Method Room Air Intake Visit Reasons: EP lft hand stitch removal Intake Note: pt is here today for lft hand stitch rmoval Patient Tobacco Use Status: Never used Tobacco Allergies [id number]-[id number] Reductase Inhibitor [[id number] REDUCTASE INHIBITOR] Allergy (Unknown, Verified 03/03/24 11:53) UNKNOWN Do you need a note to return to daycare/school/sports/work: No HPI HPI Comments History of Present Illness Details 74-year-old male presents today for sutu re removal after a laceration 10 days ago on a railing. The wound is well healed [facility] Medical History No known health problems Social History Patient Tobacco Use Status: Never used Tobacco Review of Systems Const All systems reviewed & are unremarkable except as noted in HPI and below Physical Exam Vital Signs: Last Vital Signs Temp 97.5 F 03/03/24 11:44 Pulse 67 03/03/24 11:44 BP 118/80 03/03/24 11:44 Pulse Ox 97 03/03/24 11:44 Oxygen Delivery Method Room Air 03/03/24 11:44 BMI result Body Mass Index 32.7 Skin Trauma: laceration (Jie laceration appears well healed with 4 sutures present) Assessment & Plan Assessment & Plan (1) Visit for suture removal: Code(s): Z48.02 - Encounter for removal of sutures Plan: Four sutures removed without incident follow up with PCP Plan See plan Coding Level of Care Code Est Pt Level 3 (98685) Diagnoses Visit for suture removal Z48.02
== END 2024-03-03 12:11 | disposition home or self-care (01) ==
PROVIDERS: Visit Provider Physician Assistant Medical
DX: Z48.02 Encounter for removal of sutures (principal)
CPT/HCPCS: 15853; 99212